=== PATIENT | female | born 1955 | race Caucasian/White ===

== ENCOUNTER → 2022-07-09 | Outpatient (CLI) | payer MEDICARE, OTHER, SELFPAY | END | disposition home or self-care (01) | LOC: LABSPEC 11:15 | PROVIDERS: PCP Internal Medicine; Referring Provider Nurse Practitioner Family; Visit Provider Nurse Practitioner Family | DX: R05.9 Cough, unspecified (principal) | CPT/HCPCS: 87635; U0003; U0005 ==

== ENCOUNTER → 2022-08-19 | Outpatient (CLI) | payer MEDICARE, OTHER, SELFPAY ==
[2022-08-19 12:29] LABS: Absolute Lymphocyte Count 1.92 X10^3/uL (0.83-4.51); Absolute Neutrophil Count 2.9 X10^3/uL (2.0-7.7); Basophil# 0.06 X10^3/uL; Basophil% 1.1 % (0-1); Eosinophil# 0.13 X10^3/uL; Eosinophils% 2.3 % (0-5); Hematocrit 37.8 % (37-47); Hemoglobin 13.2 g/dL (12.0-15.0); Lymphocyte # 1.92 X10^3/ul (0.83-4.51); Lymphocyte % 33.9 % (19-41); Mean Corp Hgb Conc 34.9 g/dL (32-36); Mean Corpuscular Hgb 31.9 pg (27.0-32.0); Mean Corpuscular Volume 91.3 fL (81-99); Mean Platelet Vol. 9.3 fl (6.2-12.0); Monocyte# 0.62 X10^3/uL; NRBC Flagged by Analyzer 0 % (0-5); Neutrophil # 2.93 X10^3/uL (2.7-7.7); Neutrophil % 51.7 % (47-70); Platelet Count 282 K/mm3 (150-450); RBC Distribution Width CV 13.1 % (11.6-14.6); RBC Distribution Width SD 43.9 fl (35.1-43.9); Red Blood Count 4.14 M/mm3 (4.2-5.4); White Blood Count 5.7 K/mm3 (4.4-11.0)
[2022-08-19 13:10] LABS: ALB/GLOB Ratio 1.1 RATIO (0.9-2.4); AST(SGOT) 23 U/L (15-37); Alanine Aminotransfer ALT/SGPT 29 U/L (13-56); Albumin, Serum 4.1 g/dL (3.2-5.0); Alkaline Phosphatase 66 U/L (45-117); Anion Gap 6 (5-15); BUN 15 mg/dL (7-18); BUN/Creat Ratio 17.7 RATIO (10-20); Calcium,Total 10.1 mg/dL (8.5-10.1); Chloride 100 mmol/L (98-107); Cholesterol 255 mg/dL (200); Creatinine, Serum 0.85 mg/dL (0.55-1.02); EST Glomerular Filtration Rate 71 mL/min (>60); Est Glom Filt Rate - Afr Amer 86 mL/min (>60); Free T3 2.3 pg/mL (2.18-3.98); Globulin 3.9 g/dL (2.2-4.2); Glucose 107 mg/dL (74-106); High Density Lipoprotein 50 mg/dL; Potassium 4.2 mmol/L (3.5-5.1); Sodium Level 136 mmol/L (136-145); T4 Free Direct 1.01 ng/dL (0.76-1.46); Thyroid Stim Hormone (TSH) 2.34 uIU/mL (0.358-3.74); Triglycerides 168 mg/dL; Very Low Density Lipoprotein 34 mg/dL (5-40)
== END | disposition home or self-care (01) ==
LOC: LAB 11:53
PROVIDERS: PCP Internal Medicine; Visit Provider Internal Medicine
DX: F32.0 Major depressive disorder, single episode, mild (principal); K21.9 Gastro-esophageal reflux disease without esophagitis; G47.33 Obstructive sleep apnea (adult) (pediatric); I10 Essential (primary) hypertension; E55.9 Vitamin D deficiency, unspecified; R53.83 Other fatigue
CPT/HCPCS: 36415; 80053; 80061; 82306; 84439; 84443; 84481; 85025

== ENCOUNTER → 2022-08-28 | Outpatient (CLI) | payer MEDICARE, OTHER, SELFPAY ==
--- NOTE | 2022-08-28 12:49 | STRESSREP_ITS ---
Stress Test Report Date: 08/28/2022 Procedure: Exercise tolerance test/imaging study Indications: Dyspnea on exertion Consent: Per the patient Procedure: The patient exercised on a Sam protocol for 7 minutes achieving a peak heart rate of 130 bpm (85% predicted maximal heart rate) with a peak blood pressure 170/82 mmHg and a peak MET capacity of 10 METs. The baseline ECG demonstrated normal sinus rhythm. The peak exercise ECG demonstrated no ischemic change. There were no cardiac dysrhythmias pretest, during exercise, or recovery. The functional capacity was considered low average. There was no complaint of chest discomfort during exercise or recovery. The examination was discontinued secondary to target heart rate being achieved. The patient was injected with 11.9 mCi of technetium 99m Cardiolite and subsequently rest SPECT Cardiolite nuclear imaging was obtained in the horizontal long, vertical long, and short axis views. Post-exercise, the patient was injected with 34.3 mCi of technetium 99m Cardiolite and subsequently stress SPECT Cardiolite nuclear imaging was obtained in the horizontal long, vertical long, and short axis views. A gated Cardiolite study at peak stress was obtained. Rest and stress SPECT Cardiolite nuclear imaging status post realignment, normalization, and attenuation correction, demonstrates mild to moderate sized reversible defect in the anterior wall of mild dense intensity. There is end systolic thickening and brightening. The gated Cardiolite study demonstrates myocardial thickening and inward wall motion. The reported LVEF is 76%. Impression: 1. Technically adequate (percent predicted maximal heart rate greater than 85%) exercise tolerance test 2. Peak exercise ECG no ischemic changes 3. There were no cardiac dysrhythmias pretest, during exercise, or recovery 4. Rest and stress SPECT Cardiolite nuclear imaging demonstrate a small to moderate sized reversible defect in the anterior wall suggestive of ischemia. 5. The gated Cardiolite study reports an LVEF of 76%. This note was generated with DigitalGlobeation software. It may contain incorrect words, spelling, and punctuation that were not noted in checking the note before signing.
== END | disposition home or self-care (01) ==
LOC: CVS 06:44
PROVIDERS: PCP Internal Medicine; Referring Provider Internal Medicine; Visit Provider Internal Medicine
DX: R06.09 Other forms of dyspnea (principal); I10 Essential (primary) hypertension; R53.83 Other fatigue
CPT/HCPCS: 78452; 93017; A9500; A4216

== ENCOUNTER → 2022-09-18 | Outpatient (CLI) | payer MEDICARE, OTHER, SELFPAY ==
--- NOTE | 2022-09-18 07:54 | ECHOCS_ITS ---
Reason For Study: Murmur Procedure This was a 2D Doppler, Color Flow transthoracic echocardiogram. The study was technically difficult. Contrast injection was performed. Exam performed in department. Left Ventricle Normal size and thickness. The left ventricular ejection fraction is 65 %. Normal diastololic function. Right Ventricle Normal right ventricle. Atria The left and right atria are normal. Can not exclude tiny PFO. Mitral Valve Mild (1+) mitral valve insufficiency. Tricuspid Valve Mild to moderate (1-2+) tricuspid valve insufficiency. Normal pulmonary artery pressure. Aortic Valve Aortic sclerosis, no stenosis. Trivial aortic valve insufficiency. Pulmonic Valve The pulmonic valve is not well visualized. Trivial eccentric pulmonic valve insufficiency. Great Vessels Normal sized aortic root. Pericardium/Pleural No pericardial effusion. Medication 20 gauge I.V. with prn adaptor inserted into right arm. Diluted definity 1.5ml given slow IV push to enhance endocardial definition. MMode/2D Measurements & Calculations LVIDd: 4.6 cm IVSd: 1.1 cm LVOT diam: 2.0 cm LVIDs: 2.9 cm LVPWd: 1.3 cm RVDd: 3.7 cm FS: 36.4 % LVOT area: 3.1 cm2 Ao root diam: 3.6 cm LAV(MOD-bp): 48.9 ml LA A4 area: 19.0 cm2 LA dimension: 3.8 cm LAV(MOD-bp) Indexed: 23.8 ml/m2 LAV(MOD-sp2): 44.9 ml LAV(MOD-sp4): 51.6 ml RA A4 area: 16.9 cm2 Time Measurements MV dec time: 0.24 sec Doppler Measurements & Calculations MV E max rohit: 82.7 cm/sec Lat Peak E' Rohit: 11.5 cm/sec Med Peak E' Rohit: 7.9 cm/sec MV A max rohit: 86.7 cm/sec E/E' lat: 7.2 E/E' med: 10.4 MV E/A: 0.95 MV V2 max: 108.1 cm/sec MV P1/2t max rohit: 109.2 cm/sec Ao V2 max: 173.7 cm/sec MV max P.7 mmHg MV P1/2t: 94.5 msec Ao max P.1 mmHg MV V2 mean: 56.7 cm/sec MV dec slope: 338.3 cm/sec2 Ao V2 mean: 117.3 cm/sec MV mean P.5 mmHg Ao mean P.4 mmHg MV V2 VTI: 38.0 cm MVA(P1/2t): 2.3 cm2 Ao V2 VTI: 42.5 cm MVA(VTI): 2.3 cm2 ADITYA(I,D): 2.1 cm2 ADITYA(V,D): 2.0 cm2 LV V1 max: 111.3 cm/sec MR max rohit: 491.0 cm/sec SV(LVOT): 87.1 ml LV V1 max P.0 mmHg MR max P.5 mmHg LV V1 mean P.9 mmHg MR mean rohit: 396.7 cm/sec LV V1 mean: 80.9 cm/sec MR mean P.4 mmHg LV V1 VTI: 27.7 cm MR VTI: 200.2 cm PA V2 max: 99.7 cm/sec TR max rohit: 238.6 cm/sec PA V2 mean: 69.5 cm/sec TR max P.9 mmHg ECHO/Echo Complete W/ Contrast Interpretation Summary The left ventricular ejection fraction is 65 %. Can not exclude tiny PFO Mild (1+) mitral valve insufficiency. Mild to moderate (1-2+) tricuspid valve insufficiency. Aortic sclerosis, no stenosis. Ordering Physician: Ana M Claudio Referring Physician: Mary Louis M.D. Performed By: Albin Macias RCS
--- NOTE | 2022-09-18 08:50 | RAD_ITS ---
STUDY: X-RAY CHEST REASON FOR EXAM: Female, 67 years old. Chest pain/pressure TECHNIQUE: PA and lateral views of the chest. COMPARISON: None. FINDINGS: Chronic interstitial changes, no superimposed acute pulmonary process. There is no demonstrated pleural abnormality. Normal size heart. Normal mediastinum and be. Normal visualized pulmonary arteries. Normal visualized aortic arch and descending thoracic aorta. Normal visualized thoracic spine. Normal visualized ribs, clavicles, and shoulders. There is no demonstrated abnormality of the visualized soft tissue structures of the upper abdomen. RAD/Chest PA and Lateral IMPRESSION: Chronic interstitial changes, no superimposed acute pulmonary process Electronically Signed: Bladimir Navarro MD at 9:21 EDT ,
== END | disposition home or self-care (01) ==
PROVIDERS: PCP Internal Medicine; Referring Provider Internal Medicine Cardiovascular Disease; Visit Provider Internal Medicine Cardiovascular Disease
DX: R06.09 Other forms of dyspnea (principal); R94.39 Abnormal result of other cardiovascular function study; G47.33 Obstructive sleep apnea (adult) (pediatric)
CPT/HCPCS: 71046; 93306; Q9957; A4216; C8929

== ENCOUNTER 2022-09-19 07:48 | Day surgery (SDC) | payer MEDICARE, OTHER, SELFPAY ==
[2022-09-18 08:56] VITALS: BMI 34.3
[2022-09-18 09:19] LABS: Hematocrit 36.2 % (37-47); Hemoglobin 12.4 g/dL (12.0-15.0); Mean Corp Hgb Conc 34.3 g/dL (32-36); Mean Corpuscular Hgb 31.9 pg (27.0-32.0); Mean Corpuscular Volume 93.1 fL (81-99); Mean Platelet Vol. 9.6 fl (6.2-12.0); Platelet Count 265 K/mm3 (150-450); RBC Distribution Width SD 43.8 fl (35.1-43.9); Red Blood Count 3.89 M/mm3 (4.2-5.4)
[2022-09-18 09:34] LABS: Partial Thromboplast Time 31.1 Seconds (24.1-36.2)
[2022-09-18 09:53] LABS: Anion Gap 5 (5-15); BUN 15 mg/dL (7-18); BUN/Creat Ratio 16.1 RATIO (10-20); Calcium,Total 9.7 mg/dL (8.5-10.1); Chloride 100 mmol/L (98-107); Creatinine, Serum 0.93 mg/dL (0.55-1.02); EST Glomerular Filtration Rate 64 mL/min (>60); Est Glom Filt Rate - Afr Amer 77 mL/min (>60); Glucose 93 mg/dL (74-106); Potassium 3.6 mmol/L (3.5-5.1); Sodium Level 136 mmol/L (136-145)
--- NOTE | 2022-09-19 11:25 | CL.D_ITS ---
Patient Name: CALEB QUIROZ Study Date: 09/19/2022 Performing: Ana M Claudio MD Ht: 66 inches 167.64 cm : 1955 Wt: 213.01 lbs 96.62 kg Age: 67 Gender: female BSA: 2.05 PROCEDURE(S) PERFORMED [id number]-([id number])[facility] CLINICAL PROFILE AND INDICATIONS Indications: Suspected CAD Heart Failure: None Stress/Imaging Stress Test w/SPECT MPI: Yes Result: Positive Intermediate RiskStress Test with SPECT MPI: Positive Intermediate Risk CONCLUSIONS 50% Prox LAD, 50% Mid LAd 65-70% calcified Mid LCX 50% ostial RPDA RECOMMENDATIONS Medical therapy. If continues to be symptomatic despite maximal medical therapy, then PCI to Mid LCX DESCRIPTION OF PROCEDURE The patient arrived to the procedure lab. The risks and benefits of the procedure as well as a full description of our services here and current unavailability of surgical backup were fully explained to the patient and/or their significant other prior to the catheterization. The Timeout was completed, verifying the correct patient and procedure. The patient's procedural site was prepped and draped in the usual fashion. Local anesthetic was given subcutaneously to right radial region with Lidocaine 2%. Using a modified Seldinger technique, arterial access was obtained via the right radial artery, a 6Fr sheath was inserted. Left Coronary Artery selective angiography was performed in multiple views using a 5 Fr. 4.0 [place] catheter. Right Coronary Artery selective angiography was then performed in multiple views using a 5 Fr. 4.0 [place] catheter.The arterial sheath was pulled and a TR Band was applied for hemostasis CORONARY ANGIOGRAPHY DOMINANCE: Right Dominant LEFT HEART ASSESSMENT LVEDP: 33 mmHg LEFT ANTERIOR DESCENDING ARTERY: LAD: Calcified 50% Proximal lesion in LAD Tubular 50% Mid lesion in LAD CIRCUMFLEX ARTERY: CIRCUMFLEX: Calcified 70% Mid lesion in Circumflex RIGHT CORONARY ARTERY: RCA: Tubular 30% Proximal lesion in RCA RT PDA: Tubular 50% Ostial lesion in Right PDA COMPLICATIONS No Complications PROCEDURE MEDICATIONS Versed 2 mg IV Fentanyl 50 mcg IV Oxygen: 2 L/min via nasal cannula Baby Aspirin (81mg) 1 Tabs PO @ 09/19/2022 08:27:19 Heparin given IA 09/19/2022 11:02:06 Verapamil 2.5mg, Ntg 200mcgs, 2000 units of Heparin given IA 09/19/2022 11:02:06 IV Bolus: .9 NaCl 250 ml total 09/19/2022 11:07:31 SUMMARY OF HEMODYNAMIC DATA Time AIR REST ECG 08:20:00 AO 140/80 (102) SA 11:04:50 LV 145/28, 35 11:08:25 11:23:20 Signed By Ana M Claudio MD On 09/19/2022 11:25:06 Ana M Claudio MD
== END 2022-09-19 13:30 | disposition home or self-care (01) ==
PROVIDERS: PCP Internal Medicine; Referring Provider Internal Medicine Cardiovascular Disease; Visit Provider Internal Medicine Cardiovascular Disease
DX: R06.09 Other forms of dyspnea (principal); R94.39 Abnormal result of other cardiovascular function study; R01.1 Cardiac murmur, unspecified; I10 Essential (primary) hypertension; E78.5 Hyperlipidemia, unspecified; G47.33 Obstructive sleep apnea (adult) (pediatric); Z79.82 Long term (current) use of aspirin; Z79.899 Other long term (current) drug therapy; Z86.16 Personal history of COVID-19; Z87.891 Personal history of nicotine dependence; Z82.49 Family history of ischemic heart disease and other diseases of the circulatory system; R00.1 Bradycardia, unspecified; R06.02 Shortness of breath
CPT/HCPCS: 36415; 80048; 85027; 85610; 85730; 93454; 99152; 99153; J7040; C1769; C1894; Q9967

== ENCOUNTER → 2022-11-21 | Outpatient (CLI) | payer MEDICARE, OTHER, SELFPAY ==
[2022-11-21 10:48] LABS: AST(SGOT) 32 U/L (15-37); Alanine Aminotransfer ALT/SGPT 49 U/L (13-56); CPK Total, Creatine Kinase 160 U/L (26-192); Cholesterol 152 mg/dL (200); High Density Lipoprotein 54 mg/dL; Triglycerides 130 mg/dL; Very Low Density Lipoprotein 26 mg/dL (5-40)
== END | disposition home or self-care (01) ==
LOC: LAB 09:49
PROVIDERS: PCP Internal Medicine; Referring Provider Internal Medicine Cardiovascular Disease; Visit Provider Internal Medicine Cardiovascular Disease
DX: E78.5 Hyperlipidemia, unspecified (principal); I10 Essential (primary) hypertension
CPT/HCPCS: 36415; 80061; 82550; 84450; 84460

== ENCOUNTER → 2022-12-19 | Outpatient (CLI) | payer MEDICARE, OTHER, SELFPAY ==
[2022-12-19 12:22] LABS: CPK Total, Creatine Kinase 131 U/L (26-192)
== END | disposition home or self-care (01) ==
LOC: LAB 11:07
PROVIDERS: PCP Internal Medicine; Visit Provider Internal Medicine Cardiovascular Disease
DX: E78.5 Hyperlipidemia, unspecified (principal); M79.10 Myalgia, unspecified site
CPT/HCPCS: 36415; 82550

== ENCOUNTER → 2023-01-03 | Outpatient (CLI) | payer MEDICARE, OTHER, SELFPAY ==
[2023-01-03 16:57] LABS: Hematocrit 35.9 % (37-47); Hemoglobin 11.9 g/dL (12.0-15.0); Mean Corp Hgb Conc 33.1 g/dL (32-36); Mean Corpuscular Hgb 31.9 pg (27.0-32.0); Mean Corpuscular Volume 96.2 fL (81-99); Mean Platelet Vol. 9.4 fl (6.2-12.0); Platelet Count 271 K/mm3 (150-450); RBC Distribution Width CV 12.9 % (11.6-14.6); RBC Distribution Width SD 44.9 fl (35.1-43.9); Red Blood Count 3.73 M/mm3 (4.2-5.4); White Blood Count 5.6 K/mm3 (4.4-11.0)
[2023-01-03 17:21] LABS: Anion Gap 5 (5-15); BUN 16 mg/dL (7-18); BUN/Creat Ratio 14.8 RATIO (10-20); Calcium,Total 9.9 mg/dL (8.5-10.1); Chloride 100 mmol/L (98-107); Creatinine, Serum 1.08 mg/dL (0.55-1.02); EST Glomerular Filtration Rate 54 mL/min (>60); Est Glom Filt Rate - Afr Amer 65 mL/min (>60); Glucose 100 mg/dL (74-106); Potassium 3.8 mmol/L (3.5-5.1); Sodium Level 136 mmol/L (136-145)
[2023-01-03 17:27] LABS: BNP,B-Type NATRIURETIC PEPTIDE 28.8 pg/mL (0-100)
== END | disposition home or self-care (01) ==
LOC: LAB 15:28
PROVIDERS: Nurse Practitioner Gerontology; PCP Internal Medicine; Visit Provider Internal Medicine Cardiovascular Disease
DX: R06.02 Shortness of breath (principal); R60.9 Edema, unspecified; R42 Dizziness and giddiness; R53.83 Other fatigue; I25.10 Atherosclerotic heart disease of native coronary artery without angina pectoris; R20.0 Anesthesia of skin; D64.9 Anemia, unspecified; R63.5 Abnormal weight gain; R01.1 Cardiac murmur, unspecified; R05.9 Cough, unspecified
CPT/HCPCS: 36415; 80048; 83880; 85027

== ENCOUNTER 2023-03-29 15:51 | Emergency (ER) | payer MEDICARE, OTHER, SELFPAY ==
[2023-03-29 15:51] VITALS: BP 132/90; PULSE 65; RESP 16; TEMP 36.2; O2SAT 100; BMI 37.1
--- NOTE | 2023-03-29 20:00 | EDS_ITS ---
HPI History of Present Illness Chief Complaint: Wound Informant: patient and family Narrative Narrative: Patient here duration concerns for worsening infection. Patient states last week wearing new sandals that were comfortable, she states she developed a blood blister to her toe. She seen urgent care this past Friday started on Keflex. Was told of streaking occurs to go to the ED. She is not diabetic. She has no fevers. States new spots on her bilateral foot. There is been swelling to her foot that is improved however the blister has increased. Prior similar symptoms: No PFSH PFSH Medical History Anemia Asthma Atherosclerotic heart disease of [place] coronary artery without angina pectoris bladder sling Chronic bronchitis Chronic right shoulder pain Contact with and (suspected) exposure to other viral communicable diseases Coronary artery disease COVID-19 Depressive disorder, not elsewhere classified Dyslipidemia Essential hypertension GERD (gastroesophageal reflux disease) Low back problem Murmur, cardiac Muscle spasm Skin cancer Sleep apnea SOB (shortness of breath) tonsillectomy UTI (urinary tract infection) Weight gain with edema Home Medications multivitamin (Daily Multi-Vitamin tablet) 1 tab PO DAILY 06/22/20 [History Last Taken Unknown] hydrochlorothiazide 25 mg tablet 25 mg PO DAILY #90 tabs 04/08/22 [Rx Last Taken Unknown] magnesium 250 mg tablet 500 mg PO DAILY 08/19/22 [History Last Taken Unknown] aspirin 81 mg tablet,delayed release (Micaela Low Dose Aspirin) 81 mg PO DAILY 09/10/22 [History Last Taken 09/19/22] cholecalciferol (vitamin D3) 50 mcg (2,000 unit) capsule 50 mcg PO DAILY 09/10/22 [History Last Taken Unknown] vitamin E (dl, acetate) 90 mg (200 unit) capsule 90 mg PO DAILY 09/10/22 [History Last Taken Unknown] metoprolol tartrate 50 mg tablet 25 mg PO BID #90 tabs 11/20/22 [Rx Last Taken Unknown] isosorbide mononitrate 30 mg tablet,extended release 24 hr 30 mg PO DAILY #90 tabs 12/17/22 [Rx Last Taken Unknown] ezetimibe 10 mg tablet (Zetia) 10 mg PO DAILY #30 tabs 02/03/23 [Rx Last Taken Unknown] fluoxetine 40 mg capsule 40 mg PO QAM 02/03/23 [History Last Taken Unknown] nitroglycerin 0.4 mg sublingual tablet 0.4 mg sublingual Q5M PRN chest pain #25 tabs 02/03/23 [Rx Last Taken Unknown] amlodipine 10 mg tablet 10 mg PO DAILY #30 tabs 03/12/23 [Rx Last Taken Unknown] meloxicam 7.5 mg tablet 7.5 mg PO DAILY 03/12/23 [History Last Taken Unknown] Allergy/AdvReac Type Severity Reaction Status Date / Time prednisone Allergy Severe kidney Verified 03/29/23 15:51 failure,weakness amlodipine AdvReac Intermediate Swelling Verified 03/29/23 15:51 in feet, numbness in fingers atorvastatin AdvReac Intermediate Other Verified 03/29/23 15:51 Family History Mother Breast cancer Heart disease Hypertension Diabetes Myocardial infarction Aunt Breast cancer Father Anxiety Alcoholism Brother Anxiety Alcoholism Cystic fibrosis Grandfather Anxiety Alcoholism Sister Cystic fibrosis Surgical History H/O knee surgery History of left heart catheterization (~09/19/22) Previous back surgery Tubal ligation status Social History household members: spouse housing: house current occupational status: retired Smoking Status: Former smoker alcohol intake: current alcohol intake frequency: a few times a week Alcohol type: wine substance use type: does not use caffeine: Yes Type: coffee Number of servings: 2 ROS ROS ED Constitutional Constitutional ED: Denies chills, fever(s) or sweats Eyes Eyes: Denies change in vision ENT ENT ED: Denies dysphagia or sore throat Cardiovascular Cardiovascular: Denies chest pain, leg edema, palpitations or racing heartbeat Respiratory/Chest Respiratory/Chest: Denies cough, dyspnea or dyspnea on exertion Gastrointestinal Gastrointestinal: Denies abdominal pain, diarrhea, nausea or vomiting Genitourinary Genitourinary ED: Denies dysuria, hematuria or urinary frequency Musculoskeletal Musculoskeletal: Denies back pain, extremity pain or neck pain Integumentary Reports wounds; Denies rash Neurologic Neurologic: Denies headache(s), paresthesias or weakness EXAM Physical Exam Const Vital Signs: 03/29/23 15:51 Temperature 97.2 F L Temperature Source Temporal Pulse Rate 65 Respiratory Rate 16 Blood Pressure 132/90 H Blood Pressure Mean 104 Pulse Ox 100 Oxygen Delivery Method Room Air Positive well nourished and well developed General Appearance ED: well developed and NAD HEENT Reports moist mucous membranes normocephalic and atraumatic Eyes PERRL, EOMs intact bilaterally and conjunctivae normal General Eye ED: Yes normal appearance of both eyes Neck no lymphadenopathy and supple General: Negative for tenderness Chest Wall Chest: Negative for tenderness Resp normal respiratory effort and normal air movement Effort and Inspection: symmetric chest movement; Negative for respiratory distress Cardio regular rate, regular rhythm and no murmurs Peripheral Pulses: pulses 2+ throughout GI normal to inspection, nondistended, normoactive bowel sounds and non-tender Palpation: Negative for guarding or rebound tenderness present Back/Spine no CVA tenderness and no thoracic nor lumbar tenderness Extremity Extremity Narrative: Left foot: There was clear fluid-filled blister dorsal aspect of the left great toe no hemorrhage noted. Abrasion noted at the first webspace area, no drainage. No streaking. Right foot: Small abrasion noted at the first webspace at the distal first metatarsal, upon gentle rub, there is small flaking of skin. No drainage. General Extremety ED: Negative for edema or tenderness General Extremity: Negative for edema Neuro oriented x3 and no sensory deficits noted Sensorium / Orientation: awake and alert Skin no rashes or lesions noted and no wounds MDM MDM MDM Narrative Medical decision making narrative: Interventions / MDM: Differential diagnosis: Blister, friction abrasion Diagnosis considered but do not suspect: Clinical cellulitic concerns no abscess My EKG interpretation: N/A Imaging independently reviewed and interpreted by myself: N/A External documents reviewed: N/A Test considered but not ordered:N/A ED course: Patient's history and findings more concerned for friction irritation causing the blister and abrasions from her sandals from a week ago. This follows the pattern of sandals. I did drain the blister with a 22-gauge needle, pressure dressing was placed. Since patient was started on Keflex discussed finishing this as prescribed. She is given wound care for follow-up with return precautions. All questions were answered. Re-evaluation: stable Disposition discussed with patient/family/significant other: Patient and daughter Case discussed with consulting clinician: N/A Discharge Plan Triage Chief Complaint: Wound ED Provider: Noman Oliver Dx/Rx/DC Orders Clinical Impression: Blister, Abrasion Prescriptions: No Action multivitamin [Daily Multi-Vitamin] Tablet 1 tab PO DAILY magnesium 250 mg tablet 500 mg PO DAILY Rx Instructions: 500mg orally daily; aspirin [Micaela Low Dose Aspirin] 81 mg tablet,delayed release (DR/EC) 81 mg PO DAILY cholecalciferol (vitamin D3) 50 mcg (2,000 unit) capsule 50 mcg PO DAILY vitamin E (dl, acetate) 90 mg (200 unit) capsule 90 mg PO DAILY amlodipine 10 mg tablet 10 mg PO DAILY Qty: 30 12RF fluoxetine 40 mg capsule 40 mg PO QAM Label Comments: TAKE ONE CAPSULE BY MOUTH EVERY DAY ezetimibe [Zetia] 10 mg tablet 10 mg PO DAILY Qty: 30 11RF nitroglycerin 0.4 mg tablet, sublingual 0.4 mg sublingual Q5M PRN (Reason: chest pain) Qty: 25 3RF Rx Instructions: do not exceed 3 doses per episode meloxicam 7.5 mg tablet 7.5 mg PO DAILY hydrochlorothiazide 25 mg tablet 25 mg PO DAILY Qty: 90 3RF metoprolol tartrate 50 mg tablet 25 mg PO BID Qty: 90 3RF isosorbide mononitrate 30 mg tablet extended release 24 hr 30 mg PO DAILY Qty: 90 3RF Primary Care Provider: Mary Louis Referrals: Mary Louis MD [Primary Care Provider] - Wound,Center [Non-Staff] - 3-5 Days Activity Restrictions/Additional Instructions: You have a pressure blister great toe clear liquid. Normal wound care warm soap and water avoid continuing pressure with your sandals may wear slides. Finish your antibiotics as prescribed by urgent care. Follow-up with wound care center. Return if worsening symptoms. Disposition Disposition: Home, Self Care Discharge Date/Time: 03/29/23 16:47
== END 2023-03-29 16:47 | disposition home or self-care (01) ==
PROVIDERS: Emergency Provider Emergency Medicine; PCP Internal Medicine; Visit Provider Emergency Medicine
DX: S90.422A Blister (nonthermal), left great toe, initial encounter (principal); S90.811A Abrasion, right foot, initial encounter; S90.812A Abrasion, left foot, initial encounter; X58.XXXA Exposure to other specified factors, initial encounter; I25.10 Atherosclerotic heart disease of native coronary artery without angina pectoris; I10 Essential (primary) hypertension; E78.5 Hyperlipidemia, unspecified; Z79.82 Long term (current) use of aspirin; Z79.899 Other long term (current) drug therapy; Z86.16 Personal history of COVID-19; Z87.891 Personal history of nicotine dependence
CPT/HCPCS: 99282

== ENCOUNTER 2023-05-09 08:30 | Day surgery (SDC) | payer MEDICARE, OTHER, SELFPAY ==
[2023-05-09] VITALS (8 sets, daily range): BP systolic 95–141; BP diastolic 62–72; PULSE 56–61; RESP 16; TEMP 36.1–36.4; O2SAT 97–100; BMI 36.2
--- NOTE | 2023-05-09 08:48 | HP.PCM_ITS ---
History and Physical Date of Admission: 05/09/23 Visit Reasons:?RECTAL BLEEDING Chief Complaint: rectal bleeding Is patient in pain?: No Allergies prednisone Allergy (Severe, Verified 03/25/23 14:23) kidney failure,weaknessamlodipine Adverse Reaction (Intermediate, Verified 03/25/23 14:23) Swelling in feet, numbness in fingersatorvastatin Adverse Reaction (Intermediate, Verified 03/25/23 14:23) Other Medications multivitamin (Daily Multi-Vitamin tablet) 1 tab PO DAILY 06/22/20 [History Confirmed 03/25/23] hydrochlorothiazide 25 mg tablet 25 mg PO DAILY #90 tabs 04/08/22 [Rx Confirmed 03/25/23] magnesium 250 mg tablet 500 mg PO DAILY 08/19/22 [History Confirmed 03/25/23] aspirin 81 mg tablet,delayed release (Micaela Low Dose Aspirin) 81 mg PO DAILY 09/10/22 [History Confirmed 03/25/23] cholecalciferol (vitamin D3) 50 mcg (2,000 unit) capsule 50 mcg PO DAILY 2 [History Confirmed 03/25/23] vitamin E (dl, acetate) 90 mg (200 unit) capsule 90 mg PO DAILY 09/10/22 [History Confirmed 03/25/23] metoprolol tartrate 50 mg tablet 25 mg PO BID #90 tabs 11/20/22 [Rx Confirmed 03/25/23] isosorbide mononitrate 30 mg tablet,extended release 24 hr 30 mg PO DAILY #90 tabs 12/17/22 [Rx Confirmed 03/25/23] ezetimibe 10 mg tablet (Zetia) 10 mg PO DAILY #30 tabs 02/03/23 [Rx Confirmed 03/25/23] fluoxetine 40 mg capsule 40 mg PO QAM 02/03/23 [History Confirmed 03/25/23] nitroglycerin 0.4 mg sublingual tablet 0.4 mg sublingual Q5M PRN chest pain #25 tabs 02/03/23 [Rx Confirmed 03/25/23] amlodipine 10 mg tablet 10 mg PO DAILY #30 tabs 03/12/23 [Rx Confirmed 03/25/23] meloxicam 7.5 mg tablet 7.5 mg PO DAILY 03/12/23 [History Confirmed 03/25/23] PFSH Medical History? Anemia Asthma Atherosclerotic heart disease of [place] coronary artery without angina pectoris bladder sling Chronic bronchitis Chronic right shoulder pain Contact with and (suspected) exposure to other viral communicable diseases Coronary artery disease COVID-19 Depressive disorder, not elsewhere classified Dyslipidemia Essential hypertension GERD (gastroesophageal reflux disease) Low back problem Murmur, cardiac Muscle spasm Skin cancer Sleep apnea SOB (shortness of breath) tonsillectomy UTI (urinary tract infection) Weight gain with edema Surgical History? H/O knee surgery History of left heart catheterization (~09/19/22) Previous back surgery Tubal ligation status Family History? Mother Breast cancer Heart disease Hypertension Diabetes Myocardial infarctionAunt Breast cancerFather Anxiety AlcoholismBrother Anxiety Alcoholism Cystic fibrosisGrandfather Anxiety AlcoholismSister Cystic fibrosis Social History? household members:? spouse housing:? house current occupational status:? retired Smoking Status:? Former smoker alcohol intake:? current alcohol intake frequency: a few times a week Alcohol type: wine substance use type:? does not use caffeine:? Yes Type: coffee Number of servings: 2 HPI HPI HPI: 68-year-old female is referred by Dr. Mary Louis regarding rectal bleeding and suspected hemorrhoids.? Written compromise surgical consult recommendations will be returned to him.? By history the patient's had a rectal fistula repaired.? Colonoscopy was greater than 10 years ago.? 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 She lived with that for over a decade and then finally had it repaired at the [facility].? She has no similar complaints at this time.? She has been having some intermittent rectal bleeding noted on the toilet tissue.? She denies any abdominal pain.? She has had weight gain secondary to stress.? She has had a heart catheterization showing 60 to 70% stenosis apparently by Dr. Claudio and has been placed on medication and low-dose aspirin.? The patient does get some exercise through Silver sneakers. She is able to climb a flight of stairs occasionally gets short of breath.? She denies tobacco use. She has no abdominal pain. ROS General General: Yes weight change and fatigue; No appetite, colon cancer, breast cancer or weakness HEENT HEENT: No difficulty swallowing, eye injury, eye surgery, swollen glands or hoarseness Endo Endocrine: No thyroid disease, diabetes mellitus, thyroid cancer, Hair loss, heat intolerance or cold intolerance Skin Skin: No rash or changing moles Musc Musculoskeletal: Yes back problems; No arthritis, rheumatoid arthritis, gout or joint pain Cardio Cardiovascular: Yes murmur, heart disease and high blood pressure; No pacemaker, atrial fibrillation, heart attack, heart stent, palpitations, shortness of breat with exertion or chest pain Psych Psychiatric: Yes depression and anxiety; No hearing voices Resp Respiratory: Yes shortness of breath, Yes sleep apnea, No cough, No COPD, Yes asthma, No emphysema and No wheezing Gastro Gastrointestinal: No abdominal pain, No nausea or vomiting, No diarrhea, No constipation, No blood in stool, No acid reflux, No hemorrhoids, No ulcers, No gallbladder problem and No black,tarry stools Bob Hematologic: No blood thinners, No blood disorders, No bleeding, No anemia and No blood clots Neuro Neurologic: No system reviewed and no additional complaints, except as doc umented, No as per HPI, No abnormal gait, No abnormal hearing, No abnormal movements, No abnormal speech, No behavioral changes, No burning sensations, No confusion, No convulsions, No disequilibrium, No dizziness, No localized weakness, No frequent falls, No headache(s), No lack of coordination, No loss of vision, No memory loss, No numbness, No other visual disturbances, No radicular pain, No restless legs, No sensory deficit, No syncope, No tingling, No tremor(s), No weakness and No other Exam Const General: cooperative, comfortable and no acute distress [facility] Head: normal to inspection Eyes General: appearance normal, both eyes and all related structures Neck Neck: normal visual inspection Resp Effort & Inspection: normal respiratory effort Auscultation: clear to auscultation bilaterally Cardio Rate: regular rate Rhythm: regular rhythm GI Palpation: soft and no hepatosplenomegaly Auscultation: normal bowel sounds Musc Cervical Spine: normal cervical lordosis Skin Other: Swelling noted bilateral feet.? She has a edematous blister of the right great toe.? Calves are nontender Neuro General: patient alert and patient awake Extrem General: no calf tenderness Psych Appearance: grossly normal Assessment and Plan Assessment and Plan (1) Rectal bleeding: ?Status:?Acute ?Plan: I recommended the patient a colonoscopy with possible biopsy or polypectomy as indicated.? She is aware of the technique, benefit, risk, alternatives.? Very careful inspection of the anal rectal area will be pursued.? It is of note that the patient has had a previous rectovaginal fistula repaired.? This will need to play into what potential future surgical treatment options are offered if anorectal disease or hemorrhoid disease is identified. She has had an opportunity to ask and have questions answered.? We will schedule procedure at her discretion.? Because of her cardiac cath disease we will have her continue her low-dose aspirin therapy in addition to her other medications.? On a side note I have advised her to remove her current sandal wearing elevate her legs and help reduce the edema in her feet. Copy: Dr. Mary Amador M.D., F.A.C.S I have examined the patient and the H&P has been reviewed. There are no clinical changes since date of exam. Adalberto Amador M.D., F.A.C.S.
[2023-05-09] MEDS: Lactated Ringers 1,000 ML 15 ML IV (08:59)
--- NOTE | 2023-05-09 09:30 | COLBX_PTH ---
PATIENT: CALEB QUIROZ LOC: EN U#:[id number] AGE/SX: 68/F ROOM: RE05/09/[address]: Dr. Adalberto Amador MD : 1955 BED: DIS: 05/09/2023 SPEC #: [id number] RECD: 05/09/23 13:15 STATUS: KALI WELLER #: [id number] ITZ: 05/09/23 09:[address]: Adalberto Amador DEPT: SURGICAL PATHOLOGY RECD BY: Zeinab Tucker ENTERED: 05/09/23 13:35 SP TYPE: COLON BX OTHR DR: Dr. Mary Louis MD Tissues: Sigmoid colon biopsy Procedures: Surgery Specimen Level IV HEADER OPERATION: Colonoscopy (MAC) PRE-OP DIAGNOSIS: Rectal bleeding TISSUE SUBMITTED: Distal sigmoid polyp MICROSCOPIC DIAGNOSIS Distal sigmoid colon polyp, biopsy: Polypoid fragments of benign colonic mucosa. See comment. AM:boom 05/12/2023 COMMENT Neither hyperplastic nor adenomatous change is seen. Clinical correlation is suggested. MICROSCOPIC DESCRIPTION Slides are reviewed. GROSS DESCRIPTION Received in fixative is one container labeled with the patient's name and designated distal sigmoid colon polyp. The specimen consists of two irregular fragments of light hathaway soft tissue that in aggregate measure 0.5 x 0.5 x 0.1 cm. The specimen is totally submitted in one cassette. / AM:boom 05/09/2023 TC:5 CPT: 69441
--- NOTE | 2023-05-09 10:31 | OP.COLON_ITS ---
Patient Name: Anita Mercado Procedure Date: 05/09/2023 9:49 AM Date of : 1955 Age: 68 Procedure: Colonoscopy Indications: Rectal bleeding Providers: Adalberto Amador MD Referring MD: Mary Louis Medicines: See the Anesthesia note for documentation of the administered medications Patient Profile: Last Colonoscopy: none. The patient's first colonoscopy is today. Complications: No immediate complications. Procedure: Pre-Anesthesia Assessment: - Prior to the procedure, a History and Physical was performed, and patient medications and allergies were reviewed. The patient's tolerance of previous anesthesia was also reviewed. The risks and benefits of the procedure and the sedation options and risks were discussed with the patient. All questions were answered, and informed consent was obtained. Prior Anticoagulants: The patient has taken no previous anticoagulant or antiplatelet agents. ASA Grade Assessment: II - A patient with mild systemic disease. After reviewing the risks and benefits, the patient was deemed in satisfactory condition to undergo the procedure. After I obtained informed consent, the scope was passed under direct vision. Throughout the procedure, the patient's blood pressure, pulse, and oxygen saturations were monitored continuously. The pediatric colonoscope was introduced through the anus and advanced to the cecum, identified by appendiceal orifice and ileocecal valve. The colonoscopy was technically difficult and complex due to the patient's body habitus. The patient tolerated the procedure well. The quality of the bowel preparation was good. The ileocecal valve and the appendiceal orifice were photographed. Scope In: 9:59:26 AM Scope Withdrawal Time 0 hours 13 minutes 14 seconds Scope Out: 10:24:44 AM Total Procedure Duration Time 0 hours 25 minutes 18 seconds Findings: The digital rectal exam findings include non-thrombosed external hemorrhoids, non-thrombosed internal hemorrhoids and internal hemorrhoids that prolapse with straining, but spontaneously regress to the resting position (Grade II). Pertinent negatives include no anal lesion or abnormality was detected. A 3 mm polyp was found in the distal sigmoid colon. The polyp was sessile. The polyp was removed with a cold biopsy forceps. Resection and retrieval were complete. Multiple diverticula were found in the sigmoid colon and descending colon. The colon (entire examined portion) was significantly tortuous. Impression: - Non-thrombosed external hemorrhoids, non-thrombosed internal hemorrhoids and internal hemorrhoids that prolapse with straining, but spontaneously regress to the resting position (Grade II) found on digital rectal exam. - One 3 mm polyp in the distal sigmoid colon, removed with a cold biopsy forceps. Resected and retrieved. - Diverticulosis in the sigmoid colon and in the descending colon. No fissure identified. Internal and external hemorrhoids identified. No evidence of active bleeding or inflammation. Recommendation: - Discharge patient to home. - Resume previous diet. - Continue present medications. - Repeat colonoscopy in 5 years for surveillance. - Telephone my office for pathology results in 1 week. Procedure Code(s): --- Professional --- 69376, Colonoscopy, flexible; with biopsy, single or multiple Diagnosis Code(s): --- Professional --- K64.1, Second degree hemorrhoids K64.4, Residual hemorrhoidal skin tags D12.5, Benign neoplasm of sigmoid colon K62.5, Hemorrhage of anus and rectum K57.30, Diverticulosis of large intestine without perforation or abscess without bleeding CPT copyright 2017 [employer]. All rights reserved. The codes documented in this report are preliminary and upon integrated pest management technician review may be revised to meet current compliance requirements. Adalberto Amador MD 05/09/2023 10:30:47 AM This report has been signed electronically. Number of Addenda: 0 Note Initiated On: 05/09/2023 9:49 AM
--- NOTE | 2023-05-09 10:32 | OP.CCLET_ITS ---
05/09/2023 Mary Louis [facility] [address] [place] [address] Re : Colonoscopy procedure for Anita Mercado Dear Dr. Louis This procedure was performed on Tuesday, May 09, 2023. My impressions and recommendations are as follows: Impressions : - Non-thrombosed external hemorrhoids, non-thrombosed internal hemorrhoids and internal hemorrhoids that prolapse with straining, but spontaneously regress to the resting position (Grade II) found on digital rectal exam. - One 3 mm polyp in the distal sigmoid colon, removed with a cold biopsy forceps. Resected and retrieved. - Diverticulosis in the sigmoid colon and in the descending colon. No fissure identified. Internal and external hemorrhoids identified. No evidence of active bleeding or inflammation. Recommendations : - Discharge patient to home. - Resume previous diet. - Continue present medications. - Repeat colonoscopy in 5 years for surveillance. - Telephone my office for pathology results in 1 week. My findings are described in the full procedure note, which is enclosed. If I can be of further assistance, please feel free to contact me at Doctor phone number(s): Work: . Sincerely, Adalberto Amador MD 05/09/2023 10:30:47 AM This report has been signed electronically.
== END 2023-05-09 11:27 | disposition home or self-care (01) ==
LOC: EN 08:31 → AC 08:32
PROVIDERS: PCP Internal Medicine; Referring Provider Internal Medicine; Visit Provider Surgery
PROC: 0DJD8ZZ Inspection of Lower Intestinal Tract, Via Natural or Artificial Opening Endoscopic (ICD-10-PCS; CPT 45378; principal; 2023-05-09 09:25)
DX: K64.1 Second degree hemorrhoids (principal); K64.4 Residual hemorrhoidal skin tags; D12.5 Benign neoplasm of sigmoid colon; K57.30 Diverticulosis of large intestine without perforation or abscess without bleeding; I25.10 Atherosclerotic heart disease of native coronary artery without angina pectoris; I10 Essential (primary) hypertension; E78.00 Pure hypercholesterolemia, unspecified; Z79.82 Long term (current) use of aspirin; Z79.899 Other long term (current) drug therapy; Z86.16 Personal history of COVID-19; Z87.891 Personal history of nicotine dependence
CPT/HCPCS: 45380; 88305; J7120; J2405

== ENCOUNTER → 2023-05-26 | Outpatient (CLI) | payer MEDICARE, OTHER, SELFPAY ==
[2023-05-26 13:38] LABS: Hemoglobin 12.1 g/dL (12.0-15.0); Mean Corp Hgb Conc 33.6 g/dL (32-36); Mean Corpuscular Hgb 31.7 pg (27.0-32.0); Mean Corpuscular Volume 94.2 fL (81-99); Mean Platelet Vol. 9.6 fl (6.2-12.0); Platelet Count 241 K/mm3 (150-450); RBC Distribution Width CV 12.8 % (11.6-14.6); RBC Distribution Width SD 43.9 fl (35.1-43.9); Red Blood Count 3.82 M/mm3 (4.2-5.4); White Blood Count 6.1 K/mm3 (4.4-11.0)
[2023-05-26 14:18] LABS: BNP,B-Type NATRIURETIC PEPTIDE 17.5 pg/mL (0-100)
[2023-05-26 14:25] LABS: AST(SGOT) 22 U/L (15-37); Alanine Aminotransfer ALT/SGPT 27 U/L (13-56); Anion Gap 5 (5-15); BUN 14 mg/dL (7-18); BUN/Creat Ratio 12.8 RATIO (10-20); CPK Total, Creatine Kinase 128 U/L (26-192); Calcium,Total 9.7 mg/dL (8.5-10.1); Chloride 100 mmol/L (98-107); Cholesterol 186 mg/dL (200); Creatinine, Serum 1.09 mg/dL (0.55-1.02); EST Glomerular Filtration Rate 53 mL/min (>60); Est Glom Filt Rate - Afr Amer 64 mL/min (>60); Glucose 97 mg/dL (74-106); High Density Lipoprotein 47 mg/dL; Potassium 3.8 mmol/L (3.5-5.1); Sodium Level 136 mmol/L (136-145); Triglycerides 137 mg/dL; Very Low Density Lipoprotein 27 mg/dL (5-40)
== END | disposition home or self-care (01) ==
LOC: LAB 12:56
PROVIDERS: PCP Internal Medicine; Referring Provider Internal Medicine Cardiovascular Disease; Visit Provider Internal Medicine Cardiovascular Disease
DX: I25.10 Atherosclerotic heart disease of native coronary artery without angina pectoris (principal); E78.5 Hyperlipidemia, unspecified; M62.838 Other muscle spasm; R06.02 Shortness of breath; Z86.2 Personal history of diseases of the blood and blood-forming organs and certain disorders involving the immune mechanism
CPT/HCPCS: 36415; 80048; 80061; 82550; 83880; 84450; 84460; 85027

== ENCOUNTER → 2023-08-29 | Outpatient (CLI) | payer MEDICARE, OTHER, SELFPAY ==
[2023-08-29 09:58] LABS: AST(SGOT) 28 U/L (15-37); Alanine Aminotransfer ALT/SGPT 53 U/L (13-56); Albumin, Serum 3.9 g/dL (3.2-5.0); Alkaline Phosphatase 60 U/L (45-117); Bilirubin, Direct 0.14 mg/dL (0.00-0.30); Cholesterol 222 mg/dL (200); Globulin 3.5 g/dL (2.2-4.2); High Density Lipoprotein 44 mg/dL; Protein, Total 7.4 g/dL (6.4-8.2); Thyroid Stim Hormone (TSH) 3.68 uIU/mL (0.358-3.74); Triglycerides 162 mg/dL; Very Low Density Lipoprotein 32 mg/dL (5-40)
== END | disposition home or self-care (01) ==
PROVIDERS: PCP Internal Medicine; Referring Provider Internal Medicine Cardiovascular Disease; Visit Provider Internal Medicine Cardiovascular Disease
DX: G47.30 Sleep apnea, unspecified (principal); I10 Essential (primary) hypertension; I25.10 Atherosclerotic heart disease of native coronary artery without angina pectoris; R06.02 Shortness of breath
CPT/HCPCS: 36415; 80061; 80076; 84443

== ENCOUNTER → 2023-09-08 | Outpatient (CLI) | payer MEDICARE, OTHER, SELFPAY ==
--- NOTE | 2023-09-08 13:46 | ECHOD_ITS ---
Reason For Study: SLEEP APNEA Procedure This was a 2D Doppler, Color Flow transthoracic echocardiogram. Exam performed in department. Left Ventricle Normal size and thickness. The left ventricular ejection fraction is 65 %. Normal diastology for age. Right Ventricle Normal right ventricle. Atria The left and right atria are normal. Mitral Valve Mild mitral annular calcification. Trivial mitral valve insufficiency. Tricuspid Valve Trivial tricuspid valve insufficiency. Normal pulmonary artery pressure. Aortic Valve Mild diffuse aortic valve calcification. Mild aortic stenosis. Mild (1+) aortic valve insufficiency. Pulmonic Valve The pulmonic valve is not well visualized. Great Vessels Mildly dilated aortic root. Pericardium/Pleural No pericardial effusion. MMode/2D Measurements & Calculations LVIDd: 4.2 cm IVSd: 0.90 cm Ao root diam: 3.6 cm LVIDs: 3.1 cm LVPWd: 0.92 cm RVDd: 3.1 cm FS: 27.6 % LAV(MOD-bp): 61.5 ml LVAd ap4: 24.2 cm2 LVAd ap2: 24.6 cm2 LAV(MOD-bp) Indexed: 29.5 ml/m2 LVLd ap4: 7.2 cm LVLd ap2: 7.3 cm LAV(MOD-sp2): 56.3 ml EDV(MOD-sp4): 68.6 ml EDV(MOD-sp2): 66.5 ml LAV(MOD-sp4): 56.8 ml EDV(sp4-el): 69.2 ml EDV(sp2-el): 69.8 ml LVAs ap4: 13.9 cm2 LVAs ap2: 13.5 cm2 LVLs ap4: 6.4 cm LVLs ap2: 6.5 cm ESV(MOD-sp4): 27.6 ml ESV(MOD-sp2): 24.1 ml ESV(sp4-el): 25.6 ml ESV(sp2-el): 23.8 ml EF(MOD-sp4): 59.8 % EF(MOD-sp2): 63.8 % EF(sp4-el): 63.0 % SV(MOD-sp4): 41.0 ml SV(MOD-sp2): 42.4 ml SV(sp4-el): 43.6 ml LA dimension(2D): 3.5 cm LA A4 area: 18.9 cm2 RA A4 area: 15.5 cm2 TAPSE: 2.4 cm Time Measurements MV dec time: 0.26 sec Doppler Measurements & Calculations MV E max rohit: 76.2 cm/sec Lat Peak E' Rohit: 13.2 cm/sec Med Peak E' Rohit: 8.7 cm/sec MV A max rohit: 67.3 cm/sec E/E' lat: 5.8 E/E' med: 8.8 MV E/A: 1.1 MV V2 max: 103.4 cm/sec MV dec slope: 302.8 cm/sec2 Ao V2 max: 190.8 cm/sec MV max P.3 mmHg Ao max P.6 mmHg MV V2 mean: 58.7 cm/sec Ao V2 mean: 130.9 cm/sec MV mean P.6 mmHg Ao mean P.9 mmHg MV V2 VTI: 29.9 cm Ao V2 VTI: 43.8 cm AV (velocity ratio): 0.56 AI max rohit: 395.6 cm/sec LV V1 max: 110.9 cm/sec PA V2 max: 91.5 cm/sec AI max P.6 mmHg LV V1 max P.9 mmHg PA V2 mean: 66.9 cm/sec AI dec slope: 156.0 cm/sec2 LV V1 mean P.5 mmHg AI P1/2t: 743.0 msec LV V1 mean: 71.8 cm/sec LV V1 VTI: 24.4 cm TR max rohit: 273.1 cm/sec TR max P.8 mmHg ECHO/Echo Complete Interpretation Summary The left ventricular ejection fraction is 65 %. Mild mitral annular calcification. Mild aortic stenosis. Mild (1+) aortic valve insufficiency. Mildly dilated aortic root. Ordering Physician: Ana M Claudio Referring Physician: Mary Louis Performed By: Anita Reese RDCS, RVT
== END | disposition home or self-care (01) ==
LOC: CVS 13:45
PROVIDERS: PCP Internal Medicine; Referring Provider Internal Medicine Cardiovascular Disease; Visit Provider Internal Medicine Cardiovascular Disease
DX: G47.30 Sleep apnea, unspecified (principal); I10 Essential (primary) hypertension; I25.10 Atherosclerotic heart disease of native coronary artery without angina pectoris; R06.02 Shortness of breath
CPT/HCPCS: 93306

== ENCOUNTER → 2023-09-18 | Outpatient (CLI) | payer MEDICARE, OTHER, SELFPAY ==
--- NOTE | 2023-09-18 12:58 | STEWCON_ITS ---
Reason For Study: CHEST PAIN, HTN Stress Results Protocol: Sam Protocol WITH DEFINITY Maximum Predicted HR: 151 bpm Target HR: 128 bpm % Maximum Predicted HR: 85 % DurationHeart Rate Stage (mm:ss) (bpm) BP Comment BASELINE 69 138/842 CC DEFINITY STAGE 1 3:00 100 132/84 STAGE 2 3:00 114 144/54BREATHING A LITTLE HARDER STAGE 3 2:00 129 / INCREASED SOB, FATIGUE, 2 CC DEFINITY RECOVERY 89 138/88 Stress Duration: 8:00 mm:ss Maximum Stress HR: 129 bpm Baseline Echocardiogram Findings Stress Echo Wall motion Data Resting WM Intermediate WM Stress WM Resting Wall Motion Wall Motion Stress No regional wall motion Mild anterior and anteroseptal abnormalities noted. hypokinesis poststress. Ejection Fraction 65 %. EKG Data The baseline ECG displays normal sinus rhythm. No ischemic stress ECG changes. Doppler Measurements & Calculations TR max katerina: 237.7 cm/sec TR max P.6 mmHg ECHO/Stress Test Echo W/Contrast Interpretation Summary No ischemic stress ECG changes. Suspect mild anterior and anteroseptal hypokinesis poststress, suggestive of is chemia. Ordering Physician: Ana M Claudio Referring Physician: Ana M Claudio Performed By: Albin Macias [facility]
== END | disposition home or self-care (01) ==
LOC: CVS 12:57
PROVIDERS: PCP Internal Medicine; Referring Provider Internal Medicine Cardiovascular Disease; Visit Provider Internal Medicine Cardiovascular Disease
DX: I25.10 Atherosclerotic heart disease of native coronary artery without angina pectoris (principal); I10 Essential (primary) hypertension; G47.30 Sleep apnea, unspecified; R06.02 Shortness of breath
CPT/HCPCS: 93017; 93350; Q9957; A4216; C8928

== ENCOUNTER → 2023-10-02 | Outpatient (CLI) | payer MEDICARE, OTHER, SELFPAY ==
--- NOTE | 2023-10-02 12:10 | RAD_ITS ---
STUDY: X-RAY CHEST REASON FOR EXAM: Female, 68 years old. SOB -- for heart cath TECHNIQUE: Frontal and lateral views of the chest. COMPARISON: September 18, 2022 FINDINGS: Bilateral calcified granulomas. The lungs are clear and expanded. There is no demonstrated pleural abnormality. Normal size heart. Normal mediastinum and be. Normal visualized pulmonary arteries. Normal visualized aortic arch and descending thoracic aorta. Normal visualized thoracic spine. Normal visualized ribs, clavicles, and shoulders. There is no demonstrated abnormality of the visualized soft tissue structures of the upper abdomen. RAD/Chest PA and Lateral IMPRESSION: No acute disease Electronically Signed: Bijan Cuellar MD at 0:08 EST ,
[2023-10-02 12:20] LABS: Absolute Lymphocyte Count 1.91 X10^3/uL (0.83-4.51); Absolute Neutrophil Count 3.5 X10^3/uL (2.0-7.7); Basophil# 0.06 X10^3/uL; Eosinophil# 0.15 X10^3/uL; Eosinophils% 2.5 % (0-5); Hematocrit 35.3 % (37-47); Hemoglobin 11.3 g/dL (12.0-15.0); Lymphocyte # 1.91 X10^3/ul (0.83-4.51); Lymphocyte % 31.3 % (19-41); Mean Corpuscular Volume 96.7 fL (81-99); Mean Platelet Vol. 9.6 fl (6.2-12.0); Monocyte# 0.46 X10^3/uL; Monocyte% 7.5 % (0-10); NRBC Flagged by Analyzer 0 % (0-5); Neutrophil # 3.49 X10^3/uL (2.7-7.7); Neutrophil % 57.2 % (47-70); Platelet Count 240 K/mm3 (150-450); RBC Distribution Width CV 12.7 % (11.6-14.6); RBC Distribution Width SD 45.3 fl (35.1-43.9); Red Blood Count 3.65 M/mm3 (4.2-5.4); White Blood Count 6.1 K/mm3 (4.4-11.0)
[2023-10-02 12:55] LABS: Anion Gap 4 (5-15); BUN 22 mg/dL (7-18); BUN/Creat Ratio 22.2 RATIO (10-20); Calcium,Total 9.2 mg/dL (8.5-10.1); Chloride 105 mmol/L (98-107); Creatinine, Serum 0.99 mg/dL (0.55-1.02); EST Glomerular Filtration Rate 59 mL/min (>60); Est Glom Filt Rate - Afr Amer 71 mL/min (>60); Glucose 103 mg/dL (74-106); Potassium 3.8 mmol/L (3.5-5.1); Sodium Level 140 mmol/L (136-145)
== END | disposition home or self-care (01) ==
PROVIDERS: PCP Internal Medicine; Visit Provider Internal Medicine Cardiovascular Disease
DX: I25.119 Atherosclerotic heart disease of native coronary artery with unspecified angina pectoris (principal); I10 Essential (primary) hypertension; G47.30 Sleep apnea, unspecified; R06.02 Shortness of breath; R06.09 Other forms of dyspnea; R94.39 Abnormal result of other cardiovascular function study; R53.83 Other fatigue
CPT/HCPCS: 36415; 71046; 80048; 85025

== ENCOUNTER 2023-10-07 11:46 | Observation (INO) | payer MEDICARE, OTHER, SELFPAY ==
[2023-10-06 07:19] VITALS: BMI 37.4
[2023-10-07] VITALS (10 sets, daily range): BP systolic 113–151; BP diastolic 74–89; PULSE 56–66; RESP 16; TEMP 36.2–36.7; O2SAT 96–100
--- NOTE | 2023-10-07 10:05 | CL.D_ITS ---
Patient Name: CALEB QUIROZ Study Date: 10/07/2023 Performing: Ana M Claudio MD Ht: 65 inches 165.1 cm : 1955 Wt: 225.3 lbs 102.06 kg Age: 68 Gender: female BSA: 2.08 PROCEDURE(S) PERFORMED [id number]-([id number])[facility] CLINICAL PROFILE AND INDICATIONS Indications: Stable Known CAD Heart Failure: None CAD Presentations: Symptom unlikely to be ischemic. CONCLUSIONS 50% Mid LAD (iFR 0.94) Ostial D1 65% (iFR 0.97) Mild intramyocardial bridging mid LAD 30% Prox RCA RECOMMENDATIONS Medical therapy Risk factor modification DESCRIPTION OF PROCEDURE The patient arrived to the procedure lab. The risks and benefits of the procedure as well as a full description of our services here and current unavailability of surgical backup were fully explained to the patient and/or their significant other prior to the catheterization. The Timeout was completed, verifying the correct patient and procedure. The patient's procedural site was prepped and draped in the usual fashion. . Using a modified Seldinger technique, . CORONARY ANGIOGRAPHY DOMINANCE: Right Dominant LEFT MAIN: Angiographically normal LEFT ANTERIOR DESCENDING ARTERY: LAD: Tubular 50% Mid lesion in LAD Tubular 50% Mid lesion in LAD DIAGONAL 1: Eccentric 65% Ostial lesion in 1st Diagonal CIRCUMFLEX ARTERY: Angiographically normal RIGHT CORONARY ARTERY: RCA: Tubular 30% Proximal lesion in RCA COMPLICATIONS PROCEDURE MEDICATIONS SUMMARY OF HEMODYNAMIC DATA Time AIR REST ECG 08:41:31 Signed By Ana M Claudio MD On 10/07/2023 10:07:44 Signed By Ana M Claudio MD On 10/07/2023 10:05:20 Ana M Claudio MD
--- NOTE | 2023-10-07 12:14 | CL.I_ITS ---
Patient Name: CALEB QUIROZ Study Date: 10/07/2023 Performing: Ana M Claudio MD Ht: 65 inches 165.1 cm : 1955 Wt: 225 lbs 102.06 kg Age: 68 Gender: female BSA: 2.08 PROCEDURE(S) PERFORMED DC02-(64253)LHC/COR IC12-(73289/C9600)ADY W/WO PTCA, SINGLE CORONARY ARTERY CLINICAL PROFILE AND CO-MORBIDITIES Indications: Stable Known CAD Heart Failure: None Stress/Imaging Stress Echocardiogram: Yes Result: Positive Intermediate Risk Stress Echocardiogram: Positive Intermediate Risk CAD Presentations: Symptom unlikely to be ischemic. CONCLUSIONS Non-obstructive calcific disease LAD RECOMMENDATIONS ASA Indefinitley Plavix for at least 12 months DESCRIPTION OF PROCEDURE The patient arrived to the procedure lab. The risks and benefits of the procedure as well as a full description of our services here and lack of surgical backup were fully explained to the patient and/or their significant other prior to the catheterization. The Timeout was completed, verifying the correct patient and procedure. The patient's procedural site was prepped and draped in the usual fashion. Local anesthetic was given subcutaneously to right radial region with Lidocaine 2%. Using a modified Seldinger technique, arterial access was obtained via the right radial artery, a 6Fr sheath was inserted.. Left Coronary Artery selective angiography was performed in multiple views using a 5 Fr. 4.0 Ermine catheter. Right Coronary Artery selective angiography was then performed in multiple views using a 5 Fr. 4.0 Ermine catheterThe images were reviewed and options discussed. A decision was then made to proceed with an Intervention, IVUS or other adjunct procedure. XB 3.0 Guide catheter was inserted and engaged into the LCA. RUNTHROUGH Guide wire was advanced to the Circumflex. Angiogram performed pre stent deployment. 3.0X15 MITCH FRONTIER Drug Eluting stent was inserted. Drug Eluting stent was advanced across the lesion in the circumflex, PROX. Angiogram performed post stent deployment. 2.5X12 MITCH FRONTIER Drug Eluting stent was inserted. Drug Eluting stent was advanced across the lesion in the circumflex, proximal. 3.0X12 NC EUPHORA Balloon catheter was inserted post stent. Angiogram performed post balloon dilatation. The arterial sheath was pulled and a TR Band was applied for hemostasis-16 CC AIR CORONARY ANGIOGRAPHY DOMINANCE: Right Dominant LEFT MAIN: Angiographically normal LEFT ANTERIOR DESCENDING ARTERY: LAD: Luminal Irregularities 30% Mid lesion in LAD Calcified 30% Proximal lesion in LAD CIRCUMFLEX ARTERY: CIRCUMFLEX: Tubular 80% Proximal lesion in Circumflex Tubular 80% Mid lesion in Circumflex RIGHT CORONARY ARTERY: RCA: Tubular 20% Mid lesion in RCA INTERVENTION INFORMATION LESION SITE: Circumflex (Proximal) Lesion Complexity: High/C, lesion length: 25 mm Pre Stenosis: 80 % Pre intervention FREIDA flow: 3 PROCEDURE: Drug Eluting Stent with post dilatation Post Stenosis: 0 % Post intervention FREIDA flow: 3 Lesion Devices: Cordis 6 Fr XB3.0 100cm Guide Catheter Terumo .014 180cm Runthrough Extra Floppy straight Medtronic 3.0 x 15 MITCH FRONTIER ADY Medtronic 2.50 x 12 MITCH FRONTIER ADY Medtronic NC EUPHORA RX 3.0x12 BALLOON COMPLICATIONS No Complications PROCEDURE MEDICATIONS Versed 1 mg IV Fentanyl 50 mcg IV Versed 2 mg IV Fentanyl 50 mcg IV Oxygen: 2 L/min via nasal cannula Brilinta 180 mg PO @ 10/07/2023 10:52:07 Heparin given IA 10/07/2023 10:40:03 Heparin 6000 unit(s) IV 10/07/2023 10:46:59 Heparin 2000 unit(s) IV 10/07/2023 11:01:15 Heparin 3000 unit(s) IV 10/07/2023 11:31:41 Nitro 200 mcg IC 10/07/2023 11:17:00 Verapamil 2.5mg, Ntg 200mcgs, 2000 units of Heparin given IA 10/07/2023 10:40:03 IV Bolus: .9 NaCl 350 ml total 10/07/2023 11:30:48 SUMMARY OF HEMODYNAMIC DATA Time AIR REST ECG 08:41:31 AO 155/89 (117) SA 10:44:04 Signed By Ana M Claudio MD On 10/07/2023 12:13:49 Ana M Claudio MD
[2023-10-07] MEDS: 0.9% Normal Saline (1000mL) 1,000 ML 150 ML IV (12:23)
--- NOTE | 2023-10-07 12:31 | DCINST_ITS ---
Discharge Instructions Diet Discharge Diet: Low fat / Low cholesterol Activity Discharge Activity: Return to Normal Activity May resume sexual activity in: No Restrictions Dressing / Incision Call your doctor if your incision/area has: Continuous Slow Oozing, Sudden Increased Bleeding, Increased Pain/ Swelling, Increased Redness, Foul Smelling Discharge and Swelling at the incision site Call your doctor if you observe: Fever of 101 or Higher, Coldness, Increased Pain, Numbness or Tingling and Change in Color Follow Up Care Please Follow Up With: Ana M Claudio MD When: 2-4 weeks Test Results: Test results from this visit will be discussed in further detail at your follow- up appointment, if applicable. Discharge Plan Admission Admit Date/Time: 10/07/23 11:46 Attending Provider: Ana M Claudio Primary Care Provider: Mary Louis Discharge Orders/Prescriptions Prescriptions: New Brilinta 90 mg Tablet 90 mg PO BID Qty: 60 6RF Continued multivitamin [Daily Multi-Vitamin] Tablet 1 tab PO DAILY magnesium 250 mg tablet 500 mg PO DAILY Rx Instructions: 500mg orally daily; aspirin [Micaela Low Dose Aspirin] 81 mg tablet,delayed release (DR/EC) 81 mg PO DAILY cholecalciferol (vitamin D3) 50 mcg (2,000 unit) capsule 50 mcg PO DAILY vitamin E (dl, acetate) 90 mg (200 unit) capsule 90 mg PO DAILY nitroglycerin 0.4 mg tablet, sublingual 0.4 mg sublingual Q5M PRN (Reason: chest pain) Qty: 25 3RF Rx Instructions: do not exceed 3 doses per episode cyclobenzaprine 10 mg tablet 10 mg PO HS PRN (Reason: muscle spasm) Patient Comments: TAKE 1 TABLET BY MOUTH AT BEDTIME NEEDED meloxicam 15 mg tablet 15 mg PO DAILY fluoxetine 40 mg capsule 40 mg PO QAM metoprolol tartrate 50 mg tablet 25 mg PO BID Qty: 90 3RF isosorbide mononitrate 30 mg tablet extended release 24 hr 30 mg PO DAILY Qty: 90 3RF benzonatate 100 mg capsule 100 mg PO TID PRN (Reason: cough) Qty: 30 1RF Repatha SureClick 140 mg/mL pen injector 140 mg subcut Q2W Qty: 2 6RF Referrals / Follow Up: Mary Louis MD [Primary Care Provider] - Disposition Disposition (needs filled in before D/C Order can be placed): Home, Self Care
--- NOTE | 2023-10-07 13:35 | CASEMGMT ---
FABIAN WATSON NOTE: FABIAN WATSON to room. Introduced self and role. Pt resting in bed. Brilinta 30-day free trial card provided and instructed on use. Pt made aware if refills are not affordable to discuss other possible more affordable options w/figure model. Questions answered. Pt voices understanding and declines having other discharge planning needs or concerns. Javon JONES RN CM
--- NOTE | 2023-10-07 13:48 | CRPHASE1_ITS ---
Patient Communication Patient Information PHII Cardiac Rehab Discussed with Patient:: Yes Guide to Cardiac Rehab Given to Patient:: Yes Cardiac Rehab Facility Choice List Given to Patient:: Yes Communication to Cardiac Rehab Choice Program [facility] CR PHII:: Communication Given to CR Orchard Manager:: Ana M Claudio Sessions:: 36 sessions - 3 days/wk, 12 weeks Cardiac Rehabilitation Info Program Information Cardiac Rehabilitation Program Information: Cardiac Rehab The cardiac rehab team at [facility] consists of highly skilled exercise physiologists, nurses, respiratory therapists and physicians working together with you. Our purpose is to help you have a full recovery and achieve the goals you set for yourself. Over the years many of our patients have returned to activities they assumed they would never do again! We can help restore your confidence and motivation to make lifestyle changes that can have a significant impact on your health and quality of life! We can help answer questions and concerns you may have about exercise, lifestyle, medications, diet, stress and anxiety which are common following a hospitalization. WE monitor ECG and vital signs during exercise and discuss your progress with you and report to your physician(s). Cardiac Rehab is proven to help reduce readmissions, improve functional capacity and lower recurrence of problems with your heart. Our Cardiac Rehab program is Certified by the [place] [employer]-V[employer] and Pulmonary [employer] (AACVPR) and Accredited by the [place] [employer] through our [facility]. You can contact us at . We invite you to call us with your questions or to get started in our program. If you have other questions or concerns be sure to ask your physician/provider during your follow-up visit. WE look forward to seeing you!
--- NOTE | 2023-10-07 13:49 | CRPH1.INSTRU ---
General Education Discussed with Patient CAD and cardiac anatomy and function:: Patient communicates acknowledgment Explanation of diagnoses and procedures:: Patient communicates acknowledgment Sign/Symptoms of [place]:: Patient communicates acknowledgment Antiplatelet therapy: Patient communicates acknowledgment Proper use of NTG-SL: Patient communicates acknowledgment Emergency procedures and activation of EMS: Patient communicates acknowledgment Compliance of all prescribed medications: Patient communicates acknowledgment Smoking Risk Factors Patient Nicotine/Smoking Risk Factors Are:: Non-smoker Recommendations Recommendations Include:: Previous smoker; encourage continued cessation Response Code Nicotine/Smoking Response Code:: Patient communicates acknowledgment Dyslipidemia Risk Factors Patient Dyslipidemia Risk Factors Are:: Total Cholesterol, Triglycerides, HDL and LDL Recommendations Recommendations Include:: Lipid profile provided, Reviewed NCEP/ATP guidelines and Therapeutic Lifestyle Change dietary guidelines Response Code Dyslipidemia Response Code:: Patient communicates acknowledgment Overweight/Obesity Risk Factors Patient Overweight/Obesity Risk Factors Are:: Obesity - > or = 30 Recommendations Recommendations Include:: Weight loss of 5-10%, Reduced calorie diet and Exercise 5-7 times/week Hypertension Recommendations Recommendations Include:: Maintain BP <130/85, DASH dietary guidelines, Decrease/maintain normal body weight and Moderation of ETOH Response Code Hypertension:: Patient communicates acknowledgment Diabetes Risk Factors Patient Diabetes Risk Factors Are:: No documented hx of diabetes Metabolic Syndrome Risk Factors Patient Metabolic Syndrome Risk Factors Are [3 of 5]:: Waist circumference > 35 [female] or 40 [male], High triglyceride >150, Hypertension and Low HDL <40 [male] or < 50 [female] Recommendations Recommendations Include:: Reinforce compliance to risk factor modifications and Encouraged follow-up with Primary Care Physician Response Code Metabolic Syndrome Response Code:: Patient communicates acknowledgment Sedentary Risk Factors Patient Sedentary Risk Factors Are:: Lack of regular exercise Recommendations Recommendations Include:: Aerobic exercise 5-7 times/week for 20-30 minutes continuously, Benefits of regular exercise, Discussed home walking program and Monitored Outpatient Cardiac Rehab Response Code Sedentary Response Code:: Patient communicates acknowledgment Stress Recommendations Recommendations Include:: Identification of stressors, and assessment of coping skills and Stress management techniques Response Code Stress Response Code:: Patient communicates acknowledgment
[2023-10-07] MEDS: Acetaminophen 325 MG Tablet 650 MG PO (14:01)
[2023-10-07 19:32] LABS: ACT Activated Clotting Time 251 sec (74-137)
[2023-10-07 19:33] LABS: ACT Activated Clotting Time 227 sec (74-137)
[2023-10-07] MEDS: Metoprolol Tartrate 25 MG Tablet PO (21:30)
[2023-10-07] MEDS: TICAGRELOR 90 MG TABLET PO (21:30)
[2023-10-08 03:30] VITALS: BP 131/61; PULSE 63; RESP 16; TEMP 36.1; O2SAT 98
[2023-10-08 07:30] LABS: Hematocrit 35.3 % (37-47); Hemoglobin 11.6 g/dL (12.0-15.0); Mean Corp Hgb Conc 32.9 g/dL (32-36); Mean Corpuscular Hgb 31.3 pg (27.0-32.0); Mean Corpuscular Volume 95.1 fL (81-99); Mean Platelet Vol. 9.2 fl (6.2-12.0); Platelet Count 205 K/mm3 (150-450); RBC Distribution Width CV 12.7 % (11.6-14.6); RBC Distribution Width SD 44.2 fl (35.1-43.9); Red Blood Count 3.71 M/mm3 (4.2-5.4); White Blood Count 3.9 K/mm3 (4.4-11.0)
[2023-10-08 07:36] VITALS: O2SAT 99
[2023-10-08 07:53] LABS: ALB/GLOB Ratio 1.1 RATIO (0.9-2.4); AST(SGOT) 25 U/L (15-37); Alanine Aminotransfer ALT/SGPT 30 U/L (13-56); Albumin, Serum 3.5 g/dL (3.2-5.0); Alkaline Phosphatase 56 U/L (45-117); Anion Gap 4 (5-15); BUN 14 mg/dL (7-18); Calcium,Total 9.1 mg/dL (8.5-10.1); Chloride 106 mmol/L (98-107); EST Glomerular Filtration Rate 58 mL/min (>60); Est Glom Filt Rate - Afr Amer 71 mL/min (>60); Estimated Creatinine Clearance 47.78 ml/min; Globulin 3.3 g/dL (2.2-4.2); Glucose 106 mg/dL (74-106); Protein, Total 6.8 g/dL (6.4-8.2); Sodium Level 138 mmol/L (136-145)
[2023-10-08 08:33] VITALS: BP 146/85; PULSE 67; RESP 16; TEMP 36.8; O2SAT 100
[2023-10-08] MEDS: Aspirin E.C. 81 MG Tablet PO (08:36)
[2023-10-08] MEDS: TICAGRELOR 90 MG TABLET PO (08:36)
[2023-10-08] MEDS: Vitamin E 400 UNITS Capsule PO (08:36)
[2023-10-08] MEDS: Isosorbide Mononitrate 30 MG Tablet PO (08:36)
[2023-10-08] MEDS: Multivitamins,Therapeutic Tablet 1 TABLET PO (08:36)
[2023-10-08 08:37] VITALS: BP 146/85; PULSE 67
[2023-10-08] MEDS: Metoprolol Tartrate 25 MG Tablet PO (08:37)
[2023-10-08] MEDS: Fluoxetine HCl 40 MG CAPSULE PO (08:37)
[2023-10-08] MEDS: Magnesium Chloride 64 MG Delay Rel.Tablet 128 MG PO (08:37)
[2023-10-08] MEDS: Meloxicam 15 MG Tablet PO (08:37)
[2023-10-08] MEDS: Cholecalciferol (VIT D3) 25 MCG TABLET (1,000 UNITS) 50 MCG PO (08:37)
--- NOTE | 2023-10-08 10:50 | CASEMGMT ---
Patient has order for discharge. Patient discharging on Brilinta. FABIAN WATSON called [facility] to verify cost, copay is $236.68. Patient was given Brilinta savings card. FABIAN WATSON in to discuss needs at discharge and update regarding medication cost. Patient denies needs at discharge. Patient had no further questions or concerns at this time.
[2023-10-08 11:15] VITALS: BP 119/80; PULSE 64; RESP 16; O2SAT 99
--- NOTE | 2023-10-30 12:04 | CASEMGMT ---
FABIAN WATSON NOTE: Pt called FABIAN WATSON re: Brilinta. Pt was in [facility] [place] in September, had 2 stents placed, discharged 10/08/23, and sent home /-day Brilinta savings card. She states she will be running out of Brilinta on 11/06. She states she had a cardiology appt 11/13 but it has been changed to November. FABIAN WATSON advised pt to contact cardiology office to let them know of above, as they can either send in for refills on the the Brilinta, or if that is not affordable, they may be able to change to more affordable option. She voices understanding and appreciation for the info. Call placed to Shannon @ [facility] and she was made aware of above and that pt will be calling them re: above. Javon JONES RN, CM
== END 2023-10-08 10:00 | disposition home or self-care (01) ==
LOC: PCU 11:49
PROVIDERS: Admitting Provider Internal Medicine Cardiovascular Disease; PCP Internal Medicine; Referring Provider Internal Medicine Cardiovascular Disease; Visit Provider Internal Medicine Cardiovascular Disease
DX: I25.10 Atherosclerotic heart disease of native coronary artery without angina pectoris (principal); R07.89 Other chest pain; R06.02 Shortness of breath; Z79.82 Long term (current) use of aspirin; Z79.899 Other long term (current) drug therapy; J45.909 Unspecified asthma, uncomplicated; E78.00 Pure hypercholesterolemia, unspecified; I10 Essential (primary) hypertension; Z87.891 Personal history of nicotine dependence; K21.9 Gastro-esophageal reflux disease without esophagitis; E66.9 Obesity, unspecified; G47.33 Obstructive sleep apnea (adult) (pediatric); Z68.37 Body mass index [BMI] 37.0-37.9, adult
CPT/HCPCS: 80053; 85027; 85347; 92928; 93005; 93454; 96360; 96361; 99152; 99153; 99221; C1894; J7030; J7040; Q9967; C1725; C1769; C1874; C1887; C9600; G0378

== ENCOUNTER → 2023-11-20 | Outpatient (CLI) | payer MEDICARE, OTHER, SELFPAY ==
[2023-11-20 11:58] LABS: AST(SGOT) 28 U/L (15-37); Alanine Aminotransfer ALT/SGPT 33 U/L (13-56); Albumin, Serum 3.8 g/dL (3.2-5.0); Alkaline Phosphatase 63 U/L (45-117); Bilirubin, Direct 0.16 mg/dL (0.00-0.30); Cholesterol 140 mg/dL (200); Globulin 3.4 g/dL (2.2-4.2); High Density Lipoprotein 50 mg/dL; Protein, Total 7.2 g/dL (6.4-8.2); Triglycerides 179 mg/dL; Very Low Density Lipoprotein 36 mg/dL (5-40)
== END | disposition home or self-care (01) ==
LOC: LAB 10:15
PROVIDERS: PCP Internal Medicine; Visit Provider Physician Assistant Medical
DX: E78.00 Pure hypercholesterolemia, unspecified (principal)
CPT/HCPCS: 36415; 80061; 80076

== ENCOUNTER → 2024-02-11 | Outpatient (CLI) | payer MEDICARE, OTHER, SELFPAY ==
[2024-02-11 10:13] LABS: Cholesterol 123 mg/dL (200); High Density Lipoprotein 48 mg/dL; Triglycerides 170 mg/dL; Very Low Density Lipoprotein 34 mg/dL (5-40)
[2024-02-11 10:17] LABS: AST(SGOT) 23 U/L (15-37); Alanine Aminotransfer ALT/SGPT 29 U/L (13-56); Albumin, Serum 3.8 g/dL (3.2-5.0); Alkaline Phosphatase 70 U/L (45-117); Bilirubin, Direct 0.18 mg/dL (0.00-0.30); Globulin 3.3 g/dL (2.2-4.2); Protein, Total 7.1 g/dL (6.4-8.2)
== END | disposition home or self-care (01) ==
PROVIDERS: Nurse Practitioner Gerontology; PCP Internal Medicine; Referring Provider Physician Assistant Medical; Visit Provider Physician Assistant Medical
DX: E78.5 Hyperlipidemia, unspecified (principal)
CPT/HCPCS: 36415; 80061; 80076

== ENCOUNTER → 2024-03-16 | Outpatient (CLI) | payer MEDICARE, OTHER, SELFPAY ==
[2024-03-16 11:18] LABS: Absolute Lymphocyte Count 1.58 X10^3/uL (0.83-4.51); Absolute Neutrophil Count 3.3 X10^3/uL (2.0-7.7); Basophil# 0.06 X10^3/uL; Basophil% 1.1 % (0-1); Eosinophils% 1.8 % (0-5); Hematocrit 36.6 % (37-47); Lymphocyte # 1.58 X10^3/ul (0.83-4.51); Lymphocyte % 28.4 % (19-41); Mean Corp Hgb Conc 32.8 g/dL (32-36); Mean Corpuscular Hgb 30.5 pg (27.0-32.0); Mean Corpuscular Volume 92.9 fL (81-99); Mean Platelet Vol. 9.7 fl (6.2-12.0); Monocyte# 0.53 X10^3/uL; Monocyte% 9.5 % (0-10); NRBC Flagged by Analyzer 0 % (0-5); Neutrophil # 3.28 X10^3/uL (2.7-7.7); Platelet Count 256 K/mm3 (150-450); RBC Distribution Width CV 13.2 % (11.6-14.6); RBC Distribution Width SD 44.7 fl (35.1-43.9); Red Blood Count 3.94 M/mm3 (4.2-5.4); White Blood Count 5.6 K/mm3 (4.4-11.0)
== END | disposition home or self-care (01) ==
LOC: LAB 10:28
PROVIDERS: PCP Internal Medicine; Referring Provider Physician Assistant Medical; Visit Provider Physician Assistant Medical
DX: R23.3 Spontaneous ecchymoses (principal)
CPT/HCPCS: 36415; 85025

== ENCOUNTER → 2024-07-23 | Outpatient (CLI) | payer MEDICARE, OTHER, SELFPAY ==
--- NOTE | 2024-07-23 15:05 | RAD_ITS ---
STUDY: X-RAY - LUMBAR SPINE REASON FOR EXAM: Female, 69 years old. low back pain, radiculopathy TECHNIQUE: XR Spine Lumbar 2 Views COMPARISON: None FINDINGS: Normal lumbar lordosis. There is no substantial scoliosis. There is a normal alignment of the vertebrae. There is multilevel endplate spondylosis of the lumbar vertebrae. There is multi-level degenerative disc disease with multi-level disc space narrowing. The soft tissue structures are unremarkable. RAD/Lumbar Spine 2 or 3 Views IMPRESSION: Degenerative changes of the spine, as detailed above. Electronically Signed: Harrison Ibanez MD at 18:45 EDT ,
== END | disposition home or self-care (01) ==
LOC: RAD 14:59
PROVIDERS: PCP Internal Medicine; Referring Provider Internal Medicine; Visit Provider Internal Medicine
DX: M54.16 Radiculopathy, lumbar region (principal)
CPT/HCPCS: 72100

== ENCOUNTER → 2024-09-30 | Outpatient (CLI) | payer MEDICARE, OTHER, SELFPAY ==
--- NOTE | 2024-09-30 15:41 | MRI_ITS ---
HISTORY: pain. TECHNIQUE: Multiplanar and multisequence MR images of the thoracic spine were obtained without intravenous contrast. 190 images. COMPARISON: Chest radiograph 10/02/2023 FINDINGS: VERTEBRAE: Vertebral body heights maintained. Mild degenerative endplate changes. Scattered vertebral body hemangiomas incidentally noted, largest at T10. ALIGNMENT: No significant anterior or posterior subluxation. No scoliosis. SPINAL CORD: Thoracic cord in signal and morphology. Normal morphology and position of the conus medullaris at T12-L1. INTERVERTEBRAL DISCS: C7-T1: Small right perineural cyst. T1-T2, T2-3, T3-4, T4-5, T5-6, T6-7, T7-8: No significant posterior disc protrusion, central canal stenosis, or foraminal narrowing. T8-9: Very mild disc bulge with facet arthropathy. No significant central canal stenosis or foraminal narrowing. T9-10: No significant posterior disc protrusion, central canal stenosis, or foraminal narrowing. T10-11: Mild disc bulge with facet arthropathy resulting in mild right greater left foraminal narrowing. No significant central canal stenosis. T11-12: Mild disc bulge with facet arthropathy resulting in mild central canal stenosis and bilateral foraminal narrowing. T12-L1: No significant posterior disc protrusion, central canal stenosis, or foraminal narrowing. SOFT TISSUES: No paraspinal fluid collection. Small left renal cysts. MRI/Spine Thoracic (Routine) IMPRESSION: Mild mild degenerative change of the thoracic spine as above. Electronically Signed: Homa You MD at 14:31 EST ,
== END | disposition home or self-care (01) ==
LOC: MRI 15:32
PROVIDERS: PCP Internal Medicine; Referring Provider Orthopaedic Surgery Orthopaedic Surgery of the Spine; Visit Provider Orthopaedic Surgery Orthopaedic Surgery of the Spine
DX: M43.16 Spondylolisthesis, lumbar region (principal)
CPT/HCPCS: 72146

== ENCOUNTER → 2024-10-07 | Outpatient (CLI) | payer MEDICARE, OTHER, SELFPAY ==
--- NOTE | 2024-10-07 06:39 | MRI_ITS ---
STUDY: MRI LUMBAR SPINE WITHOUT CONTRAST REASON FOR EXAM: Female, 69 years old. pain TECHNIQUE: Standardized fat and water weighted pulse sequences were obtained in the sagittal and axial planes. COMPARISON: X-ray 08/27/2024 FINDINGS: T12-L1: Normal endplates. Normal disc height, hydration and morphology. Normal bilateral facet joints. Normal central canal and bilateral lateral recesses. Normal bilateral intervertebral neural foramina. Normal lumbar lordosis. There is no substantial scoliosis. Normal conus medullaris that terminates at the L1. L1-2: Normal endplates. Normal disc height, hydration and morphology. Normal bilateral facet joints. Normal central canal and bilateral lateral recesses. Normal bilateral intervertebral neural foramina. L2-3: Mild bilateral facet hypertrophy with fluid in the facet joints consistent with instability and severe ligament and flavum hypertrophy. 2 mm retrolisthesis of L2 on L3 with a mild bilobed disc protrusion produces moderate spinal stenosis and moderate bilateral neural foraminal stenosis. L3-4: Mild bilateral facet hypertrophy and moderate ligament flavum hypertrophy. Mild bilobed disc protrusion produces mild spinal stenosis and mild bilateral neural foraminal stenosis. L4-5: Severe bilateral facet hypertrophy and ligament flavum hypertrophy. Moderate broad disc protrusion produces severe spinal stenosis with moderate bilateral lateral recess stenosis and moderate bilateral neural foraminal stenosis. L5-S1: Normal endplates. Normal disc height, hydration and morphology. Normal bilateral facet joints. Normal central canal and bilateral lateral recesses. Normal bilateral intervertebral neural foramina. Normal visualized sacral ala. Normal visualized paraspinous soft tissue structures. MRI/Spine Lumbar (Routine) IMPRESSION: Multilevel degenerative changes, as described above. Electronically Signed: Kevin Carrington MD at 13:35 EST ,
== END | disposition home or self-care (01) ==
LOC: MRI 06:32
PROVIDERS: PCP Internal Medicine; Referring Provider Orthopaedic Surgery Orthopaedic Surgery of the Spine; Visit Provider Orthopaedic Surgery Orthopaedic Surgery of the Spine
DX: M43.16 Spondylolisthesis, lumbar region (principal)
CPT/HCPCS: 72148

== ENCOUNTER → 2024-11-18 | Outpatient (CLI) | payer MEDICARE, OTHER, SELFPAY ==
--- NOTE | 2024-11-18 08:38 | BD_ITS ---
EXAM: XR DEXA BONE DENSITY AXIAL CLINICAL INDICATION: pain TECHNIQUE: Dual energy x-ray absorptiometry performed. Bone mineral density measurements were obtained of the lumbar spine and (optionally) the proximal femurs. Values are compared with gender matched average of normal, and with age, weight and ethnic origin (Z-score) and with healthy young adults (T-score). COMPARISON: No relevant prior studies available. FINDINGS: LUMBAR SPINE BONE MINERAL DENSITY: The bone mineralization density was obtained of the lumbar spine from L1 to L4. The average bone mineralization density is 1.100 g/sq cm which gave a T score of 0.5. LUMBAR SPINE T-SCORE: See above. RIGHT TOTAL FEMUR BONE MINERAL DENSITY: The total bone mineralization density of the right femoral neck is 1.142 g/sq cm which gave a T score of 1.6. LEFT TOTAL FEMUR BONE MINERAL DENSITY: Total bone density in the left femoral neck is 1.088 g/sq cm which gave a T score of 1.2. UNITS OF MEASURE: Bone mineral density is measured in g/cm2. Z-score is the number of standard deviations above age-matched controls. T-score is the number of standard deviations above healthy young adults. WORLD HEALTH ORGANIZATION GUIDELINES: T-score at or above -1 is normal bone mineral density. T-score between -1 and -2.5 is osteopenia. T-score at or below -2.5 is osteoporosis. BD/Dexa Bone Density Study IMPRESSION: No acute findings. Bone mineralization density within normal limits. Electronically Signed: Nabeel Abebe MD at 22:59 EST ,
== END | disposition home or self-care (01) ==
LOC: OPBD 08:37
PROVIDERS: PCP Internal Medicine; Referring Provider Orthopaedic Surgery Orthopaedic Surgery of the Spine; Visit Provider Orthopaedic Surgery Orthopaedic Surgery of the Spine
DX: M81.0 Age-related osteoporosis without current pathological fracture (principal)
CPT/HCPCS: 77080

== ENCOUNTER 2024-12-07 10:42 | Inpatient (IN) | payer MEDICARE, OTHER, SELFPAY ==
--- NOTE | 2024-12-01 09:27 | PAT.ANESEVAL ---
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 When Was Last Pacemaker Check QUESTION #4 FULL TEXT: You/Your Family Experience fever (hyperthermia) with Anesthesia Last Oral Intake Last Oral intake: Last Oral Intake NPO since Meds taken in AM with sips of water? 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 finisher foreman Female Yes 11/23/24 13:16 HX of Motion Sickness Yes 11/23/24 13:16 HX of N/V After Surgery No 11/23/24 13:16 Non-Smoker Yes 11/23/24 13:16 Duration of Surgery greater Yes 11/23/24 13:16 than 60 minutes Number of Risk Factors 4 11/23/24 13:16 PONV Score Severe Risk 11/23/24 13:16 Height & Weight Height & Weight: Anesthesia: Height & Weight Height 5 ft 5 in 09/27/24 14:37 Respiratory Assessment Respiratory Assessment - drywall finisher foreman: Respiratory Tract Infection Hx - drywall finisher foreman Hx Respiratory Tract Infection No 11/23/24 13:16 STOP Sleep Apnea STOP Sleep Apnea - drywall finisher foreman: STOP Sleep Apnea - drywall finisher foreman Hx Hypertension Yes: CONTROLLED WITH MED 11/23/24 13:16 Hx Sleep Apnea Yes 11/23/24 13:16 CPAP Yes 11/23/24 13:16 BIPAP No 11/23/24 13:16 Do you snore loudly (louder than talking or can be heard Do you often feel tired/ fatigued/ sleepy during daytime? Has anyone observed you stop breathing during sleep? STOP Results Positive 11/23/24 13:16 QUESTION #5 FULL TEXT : Do you snore loudly (louder than talking or can be heard through closed doors)? 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 finisher foreman Tobacco Use Smoking Status Former smoker 11/23/24 13:16 Hx Tobacco Use No 11/23/24 13:16 Years Smoking Packs Smoked per Day Smoking Cessation Date was No - quit smoking greater 11/23/24 13:16 within the last 15 years than 15 years ago Hx Smoking Cessation Date 11/17/97 11/23/24 13:16 Hx Smoking Cessation No 11/23/24 13:16 Counseling Hematologic Medial History Hematologic Hx - drywall finisher foreman: Hematologic Medical Hx - nurse sitter Hx of Blood Transfusion No 11/23/24 13:16 Hx of Transfusion in last 3 No 11/23/24 13:16 Months Date of Last Transfusion (if within last 3 months) Ever experience any problems No 11/23/24 13:16 with transfusion(s)? Specify any problems Hx of Preganancy in last 3 No 11/23/24 13:16 Months Nurse Filling Out Transfusion DSCHRIBER 11/23/24 13:16 & Questions: Date: 11/23/24 11/23/24 13:16 Time: 13:18 11/23/24 13:16 Patient unable to answer at this time (ie. confused, unrespo /Reproduction History /Reproductive History - drywall finisher foreman: /Reproductive Hx- drywall finisher foreman Hx Now No 11/23/24 13:16 Gestational Age (in weeks): EDC: Hx Hx Para Hx Section SAB No 11/23/24 13:16 PFSH Medical History Post-menopausal Depression Low iron Syncope Dietary restriction History of ulceration Asthma History of pain when walking History of edema Heart murmur Low back pain Obesity Angina pectoris Acute URI History of anemia Wears glasses Cancer Anxiety Arthritis High cholesterol History of whiplash injury Former smoker CPAP (continuous positive airway pressure) dependence Shortness of breath on exertion History of echocardiogram History of stress test Cardiology follow-up encounter Hypertension History of rheumatic fever History of rectal fissure Rectal bleeding Atherosclerotic heart disease of [place] coronary artery without angina pectoris Weight gain with edema Numbness of fingers Dizziness Edema Cough Coronary artery disease SOB (shortness of breath) Dyslipidemia Dyspnea on exertion Abnormal stress test Essential hypertension Fatigue COVID-19 Contact with and (suspected) exposure to other viral communicable diseases Chronic low back pain with bilateral sciatica Stress due to family tension Muscle spasm Chronic right shoulder pain Essential hypertension Heart murmur, systolic Obstructive sleep apnea of adult GERD (gastroesophageal reflux disease) Depression Sleep apnea Anemia Skin cancer Chronic bronchitis Murmur, cardiac Depressive disorder, not elsewhere classified Home Medications ?Medication ?Instructions ?Recorded ?Last Taken ?Type multivitamin (Daily Multi-Vitamin 1 tab PO DAILY SUPPLEMENT 06/22/20 Unknown History tablet) magnesium 250 mg tablet 500 mg PO DAILY SUPPLEMENT 08/19/22 Unknown History cholecalciferol (vitamin D3) 50 50 mcg PO DAILY SUPLEMENT 09/10/22 Unknown History mcg (2,000 unit) capsule vitamin E (dl, acetate) 90 mg (200 90 mg PO DAILY SUPPLEMENT 09/10/22 Unknown History unit) capsule nitroglycerin 0.4 mg sublingual 0.4 mg sublingual Q5M PRN chest 02/03/23 Unknown Rx tablet pain #25 tabs fluoxetine 40 mg capsule 40 mg PO QAM DEPRESSON #90 caps 04/14/24 Unknown Rx evolocumab 140 mg/mL subcutaneous 140 mg subcut Q2W CHOLESTEROL #2 mL 08/30/24 Unknown Rx pen injector (Marla Mota) cyclobenzaprine 10 mg tablet 10 mg PO HS PRN muscle spasm #90 10/18/24 Unknown Rx tabs meloxicam 15 mg tablet 15 mg PO DAILY PAIN #90 tabs 10/21/24 Unknown Rx phentermine 30 mg capsule 30 mg PO QDAY WEIGHT LOSS #30 caps 10/29/24 Unknown Rx metoprolol tartrate 50 mg tablet 25 mg (1/2 x 50 mg) PO BID BP #90 11/08/24 Unknown Rx tabs aspirin 81 mg capsule 81 mg PO DAILY HEART HEALTH 11/23/24 Unknown History rivaroxaban 2.5 mg tablet (Xarelto) 2.5 mg PO BID BLOOD THINNER 11/23/24 Unknown History Allergy/AdvReac Type Severity Reaction Status Date / Time prednisone Allergy Severe kidney Verified 11/30/24 10:28 failure,weakness [id number] Reductase AdvReac Severe myalgias Verified 11/30/24 10:28 Inhibitor amlodipine AdvReac Intermediate Swelling Verified 11/30/24 10:28 in feet, numbness in fingers atorvastatin AdvReac Intermediate Other Verified 11/30/24 10:28 Family History Mother Breast cancer Heart disease Hypertension Diabetes Myocardial infarction Aunt Breast cancer Father Anxiety Alcoholism Brother Anxiety Alcoholism Cystic fibrosis Grandfather Anxiety Alcoholism Sister Cystic fibrosis Surgical History Hx of tubal ligation History of cystoscopy Hx of tonsillectomy Hx of colonoscopy Stented coronary artery History of left heart catheterization (~10/07/23) Previous back surgery H/O knee surgery Social History household members: spouse housing: house current occupational status: retired Smoking Status: Former smoker alcohol intake: current alcohol intake frequency: a few times a week Alcohol type: wine substance use type: does not use caffeine: Yes Type: coffee Number of servings: 2 Audit: Pertinent Findings Pertinent Findings Stress test pertinent findings: 09/18/2023 no ischemia on stress EKG mild anterior anterior septal hypokinesis post-rest suggestive of ischemia Echo (EF%) pertinent findings: 09/08/2023 EF 65% mild aortic stenosis Heart catheterization pertinent findings: 10/07/2023 proximal circumflex lesion procedure of drug-eluting stent Consult pertinent findings: Cardiology for 01/06/2024 stented coronary artery circumflex stable continue with isosorbide hypertension chronic stable Pulmonary function results/spirometer pertinent findings: Chest x-ray 10/02/2023 no acute disease Recommendation Anesthesia Recommendation Anesthesia recommendation: OPTIMIZED for anesthesia
[2024-12-07] VITALS (16 sets, daily range): BP systolic 94–137; BP diastolic 49–72; PULSE 67–83; RESP 16–20; TEMP 36.3–36.8; O2SAT 95–100; BMI 37.6
[2024-12-07] MEDS: 0.9% Normal Saline (1000mL) 1,000 ML 15 ML IV (06:23)
[2024-12-07] MEDS: Magnesium 1 GM over 15 mins IV (06:24)
[2024-12-07] MEDS: Acetaminophen 500 MG Tablet 1000 MG PO ×3 (06:24→21:48)
--- NOTE | 2024-12-07 06:43 | PRE.ANES_ITS ---
ASA Classification* ASA Classification ASA Classification: 3 Assessment & Plan Anesthesia* Anesthesia Assessment Anesthesia Assessment: Discussed sedation and/or anesthesia options, risks, benefits, and alternatives with patient/parents/legal guardian/POA. Questions invited. The patient/parents/legal guardian/POA seems to understand and agrees to proceed with anesthesia plan. Reviewed the physical assessment, medical history, allergy history and patient home medications list prior to surgery/procedure/anesthetic and documented any changes. Performed airway and anesthesia risk assessments. Anesthesia Type Anesthesia Type: General History Source History Obtained from:: Patient and Chart Anesthesia Focused Assessment* Temperature: 97.5 F Pulse Rate: 73 Blood Pressure: 117/51 Respiratory Rate: 16 Pulse Ox: 98 Oxygen Delivery Method: Room Air Airway Assessment Mouth opens: >3 cm Mallampati Score: IV Teeth Condition: Caps/Crowns (Patient has multiple crowns. They are all tight.) Neck Range of motion (ROM): Limited ROM (Slight decrease in extension) Focused Labs Anesthesia Preop lab: CBC WBC 5.6 K/mm3 (4.4-11.0) 03/16/24 10:30 RBC 3.94 M/mm3 (4.2-5.4) L 03/16/24 10:30 Hgb 12.0 g/dL (12.0-15.0) 03/16/24 10:30 Hct 36.6 % (37-47) L 03/16/24 10:30 Plt Count 256 K/mm3 (150-450) 03/16/24 10:30 CHEMISTRY Potassium 4.0 mmol/L (3.5-5.1) 10/08/23 07:10 Sodium 138 mmol/L (136-145) 10/08/23 07:10 BUN 14 mg/dL (7-18) 10/08/23 07:10 Creatinine 1.00 mg/dL (0.55-1.02) 10/08/23 07:10 Glucose 106 mg/dL (74-106) 10/08/23 07:10 TSH 3.68 uIU/mL (0.358-3.74) 08/29/23 08:22 COAG PT 13.0 SECONDS (11.7-14.9) 09/18/22 08:59 Pre-Assessment Diagnosis/Proposed Procedure Planned Operative Procedure(s): 360 LUMBAR FUSION L4-5 Anesthesia History 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 When Was Last Pacemaker Check QUESTION #4 FULL TEXT: You/Your Family Experience fever (hyperthermia) with Anesthesia Last Oral Intake Last Oral intake: Last Oral Intake NPO since 04:15 12/07/24 06:11 Meds taken in AM with sips of No 12/07/24 06:11 water? 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 Female Yes 11/23/24 13:16 HX of Motion Sickness Yes 11/23/24 13:16 HX of N/V After Surgery No 11/23/24 13:16 Non-Smoker Yes 11/23/24 13:16 Duration of Surgery greater Yes 11/23/24 13:16 than 60 minutes Number of Risk Factors 4 11/23/24 13:16 PONV Score Severe Risk 11/23/24 13:16 Height & Weight Height & Weight: Anesthesia: Height & Weight Height 5 ft 5 in 12/07/24 06:11 Weight: 102.693 kg 12/07/24 06:11 Body Mass Index (BMI) 37.6 12/07/24 06:11 Respiratory Assessment Respiratory Assessment - 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 Has anyone observed you stop breathing during sleep? STOP Results Positive 11/23/24 13:16 QUESTION #5 FULL TEXT : Do you snore loudly (louder than talking or can be heard through closed doors)? 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 Specify any problems Hx of Preganancy in last 3 No 11/23/24 13:16 Months Nurse Filling Out Transfusion DSCHRIBER 11/23/24 13:16 & Questions: Date: 11/23/24 11/23/24 13:16 Time: 13:18 11/23/24 13:16 Patient unable to answer at this time (ie. 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: /Reproductive Hx- shrimping boat captain Hx Now No 11/23/24 13:16 Gestational Age (in weeks): EDC: Hx Hx Para Hx Section SAB No 11/23/24 13:16 Active Medications Active Medications: Current Medications Generic Name Dose Route Start Last Admin Trade Name Freq PRN Reason Stop Dose Admin Acetaminophen 1,000 mg 12/07/24 07:30 12/07/24 06:24 Acetaminophen 500 Mg Tablet PO 12/07/24 07:31 1,000 mg X1 ONE Administration Cefazolin Sodium 2 gm/ N/A 20 mls @ 400 mls/hr 12/07/24 07:30 IV 12/07/24 07:32 PREOP ONE Tranexamic Acid 1,000 mg/ 110 mls @ 440 mls/hr 12/07/24 07:30 Sodium Chloride IV 12/07/24 07:44 X1 ONE Tranexamic Acid 1,000 mg/ 110 mls @ 440 mls/hr 12/07/24 07:30 Sodium Chloride IV 12/07/24 07:44 X1 ONE Magnesium Sulfate 1 gm/ 102 mls @ 408 mls/hr 12/07/24 07:30 12/07/24 06:24 Dextrose IV 12/07/24 07:44 408 mls/hr X1 ONE Administration Sodium Chloride 1,000 mls @ 15 mls/hr 12/07/24 06:25 12/07/24 06:23 IV 12/12/24 19:44 15 mls/hr .Q48H MARK Administration Protocol Insulin Human Lispro 1 - 6 unit 12/07/24 07:30 Insulin Lispro 100 Unit/Ml Insuln.Pen SC Q4H PRN PRN BG>/= 180, SEE PROTOCOL Protocol PFSH Medical History Post-menopausal Depression Low iron Syncope Dietary restriction History of ulceration Asthma History of pain when walking History of edema Heart murmur Low back pain Obesity Angina pectoris Acute URI History of anemia Wears glasses Cancer Anxiety Arthritis High cholesterol History of whiplash injury Former smoker CPAP (continuous positive airway pressure) dependence Shortness of breath on exertion History of echocardiogram History of stress test Cardiology follow-up encounter Hypertension History of rheumatic fever History of rectal fissure Rectal bleeding Atherosclerotic heart disease of [place] coronary artery without angina pectoris Weight gain with edema Numbness of fingers Dizziness Edema Cough Coronary artery disease SOB (shortness of breath) Dyslipidemia Dyspnea on exertion Abnormal stress test Essential hypertension Fatigue COVID-19 Contact with and (suspected) exposure to other viral communicable diseases Chronic low back pain with bilateral sciatica Stress due to family tension Muscle spasm Chronic right shoulder pain Essential hypertension Heart murmur, systolic Obstructive sleep apnea of adult GERD (gastroesophageal reflux disease) Depression Sleep apnea Anemia Skin cancer Chronic bronchitis Murmur, cardiac Depressive disorder, not elsewhere classified Home Medications ?Medication ?Instructions ?Recorded ?Last Taken ?Type multivitamin (Daily Multi-Vitamin 1 tab PO DAILY SUPPLEMENT 06/22/20 12/06/24 History tablet) magnesium 250 mg tablet 500 mg PO DAILY SUPPLEMENT 08/19/22 12/06/24 History cholecalciferol (vitamin D3) 50 50 mcg PO DAILY SUPLEMENT 09/10/22 12/06/24 History mcg (2,000 unit) capsule vitamin E (dl, acetate) 90 mg (200 90 mg PO DAILY SUPPLEMENT 09/10/22 12/06/24 History unit) capsule nitroglycerin 0.4 mg sublingual 0.4 mg sublingual Q5M PRN chest 02/03/23 Unknown Rx tablet pain #25 tabs fluoxetine 40 mg capsule 40 mg PO QAM DEPRESSON #90 caps 04/14/24 12/06/24 Rx evolocumab 140 mg/mL subcutaneous 140 mg subcut Q2W CHOLESTEROL #2 mL 08/30/24 12/03/24 Rx pen injector (Marla Mota) cyclobenzaprine 10 mg tablet 10 mg PO HS PRN muscle spasm #90 10/18/24 12/06/24 Rx tabs meloxicam 15 mg tablet 15 mg PO DAILY PAIN #90 tabs 10/21/24 12/03/24 Rx phentermine 30 mg capsule 30 mg PO QDAY WEIGHT LOSS #30 caps 10/29/24 11/30/24 Rx metoprolol tartrate 50 mg tablet 25 mg (1/2 x 50 mg) PO BID BP #90 11/08/24 12/06/24 Rx tabs aspirin 81 mg capsule 81 mg PO DAILY HEART HEALTH 11/23/24 12/03/24 History rivaroxaban 2.5 mg tablet (Xarelto) 2.5 mg PO BID BLOOD THINNER 11/23/24 12/05/24 History Allergy/AdvReac Type Severity Reaction Status Date / Time prednisone Allergy Severe kidney Verified 12/07/24 06:03 failure,weakness [id number] Reductase AdvReac Severe myalgias Verified 12/07/24 06:03 Inhibitor amlodipine AdvReac Intermediate Swelling Verified 12/07/24 06:03 in feet, numbness in fingers atorvastatin AdvReac Intermediate Other Verified 12/07/24 06:03 Family History Mother Breast cancer Heart disease Hypertension Diabetes Myocardial infarction Aunt Breast cancer Father Anxiety Alcoholism Brother Anxiety Alcoholism Cystic fibrosis Grandfather Anxiety Alcoholism Sister Cystic fibrosis Surgical History Hx of tubal ligation History of cystoscopy Hx of tonsillectomy Hx of colonoscopy Stented coronary artery History of left heart catheterization (~10/07/23) Previous back surgery H/O knee surgery Social History household members: spouse housing: house current occupational status: retired Smoking Status: Former smoker alcohol intake: current alcohol intake frequency: a few times a week Alcohol type: wine substance use type: does not use caffeine: Yes Type: coffee Number of servings: 2 Review of Systems (Anesthesia) ROS Narrative System reviewed and no additional complaints, except as documented.
--- NOTE | 2024-12-07 07:10 | PCM.HP.BLA ---
History and Physical Date of Admission: 12/07/24 MR#: [id number] Acct: [id number] Name: CALEB QUIROZ Rep #: [id number] : 1955 Provider: Dr. Robert Melvin MD Age/Sex: 69/F Location[place] [facility] [place] Status: Signed Intake Vital Signs 09/27/2414:37 Height 5 ft 5 in Intake Visit Reasons: lumbar spine Accompanied by: Self Allergies prednisone Allergy (Severe, Verified 11/30/24 10:28) kidney failure,fedcdsmoHzxumth-LEJ-LzO Reductase Inhibitor Adverse Reaction (Severe, Verified 11/30/24 10:28) myalgiasamlodipine Adverse Reaction (Intermediate, Verified 11/30/24 10:28) Swelling in feet, numbness in fingersatorvastatin Adverse Reaction (Intermediate, Verified 11/30/24 10:28) Other Medications ?Medication ?Instructions ?Recorded ?Confirmed ?Type multivitamin (Daily Multi-Vitamin 1 tab PO DAILY SUPPLEMENT 06/22/20 11/30/24 History tablet) magnesium 250 mg tablet 500 mg PO DAILY SUPPLEMENT 08/19/22 11/30/24 History cholecalciferol (vitamin D3) 50 50 mcg PO DAILY SUPLEMENT 09/10/22 11/30/24 History mcg (2,000 unit) capsule vitamin E (dl, acetate) 90 mg (200 90 mg PO DAILY SUPPLEMENT 09/10/22 11/30/24 History unit) capsule nitroglycerin 0.4 mg sublingual 0.4 mg sublingual Q5M PRN chest 02/03/23 11/30/24 Rx tablet pain #25 tabs fluoxetine 40 mg capsule 40 mg PO QAM DEPRESSON #90 caps 04/14/24 11/30/24 Rx evolocumab 140 mg/mL subcutaneous 140 mg subcut Q2W CHOLESTEROL #2 mL 08/30/24 11/30/24 Rx pen injector (Marla Mota) cyclobenzaprine 10 mg tablet 10 mg PO HS PRN muscle spasm #90 10/18/24 11/30/24 Rx tabs meloxicam 15 mg tablet 15 mg PO DAILY PAIN #90 tabs 10/21/24 11/30/24 Rx phentermine 30 mg capsule 30 mg PO QDAY WEIGHT LOSS #30 caps 10/29/24 11/30/24 Rx metoprolol tartrate 50 mg tablet 25 mg (1/2 x 50 mg) PO BID BP #90 11/08/24 11/30/24 Rx tabs aspirin 81 mg capsule 81 mg PO DAILY HEART HEALTH 11/23/24 11/30/24 History rivaroxaban 2.5 mg tablet (Xarelto) 2.5 mg PO BID BLOOD THINNER 11/23/24 11/30/24 History Have you fallen in the past year?: No PFSH Medical History Post-menopausal Depression Low iron Syncope Dietary restriction History of ulceration Asthma History of pain when walking History of edema Heart murmur Low back pain Obesity Angina pectoris Acute URI History of anemia Wears glasses Cancer Anxiety Arthritis High cholesterol History of whiplash injury Former smoker CPAP (continuous positive airway pressure) dependence Shortness of breath on exertion History of echocardiogram History of stress test Cardiology follow-up encounter Hypertension History of rheumatic fever History of rectal fissure Rectal bleeding Atherosclerotic heart disease of [place] coronary artery without angina pectoris Weight gain with edema Numbness of fingers Dizziness Edema Cough Coronary artery disease SOB (shortness of breath) Dyslipidemia Dyspnea on exertion Abnormal stress test Essential hypertension Fatigue COVID-19 Contact with and (suspected) exposure to other viral communicable diseases Chronic low back pain with bilateral sciatica Stress due to family tension Muscle spasm Chronic right shoulder pain Essential hypertension Heart murmur, systolic Obstructive sleep apnea of adult GERD (gastroesophageal reflux disease) Depression Sleep apnea Anemia Skin cancer Chronic bronchitis Murmur, cardiac Depressive disorder, not elsewhere classified Surgical History Hx of tubal ligation History of cystoscopy Hx of tonsillectomy Hx of colonoscopy Stented coronary artery History of left heart catheterization (~10/07/23) Previous back surgery H/O knee surgery Family History Mother Breast cancer Heart disease Hypertension Diabetes Myocardial infarctionAunt Breast cancerFather Anxiety AlcoholismBrother Anxiety Alcoholism Cystic fibrosisGrandfather Anxiety AlcoholismSister Cystic fibrosis Social History household members: spouse housing: house current occupational status: retired Smoking Status: Former smoker alcohol intake: current alcohol intake frequency: a few times a week Alcohol type: wine substance use type: does not use caffeine: Yes Type: coffee Number of servings: 2 HPI lumbar spine Details: This documentation accurately reflects the service provided and the decisions made by me, Dr. Robert Melvin MD 11/30/24 1024. Part of today?s visit was documented by Allie STUART, acting as scribe. CALEB QUIROZ is a 69 year old F here today for preop, lumbar spine, dos 12/07/24. HPI from 10/13/24: CALEB QUIROZ is a 69 year old F here today for a MRI review. Patient states her pain is the same as before her MRI. She continues to have difficulty with endurance and is unable to stand or walk for long period of time. She is unable to do things that she loves in the yard because of the pain and weakness in the legs. Patient says that she just started Xarelto due to being short of breath and we need clearance from cardiology. She was not taking Xarelto when PAT called. HPI from 08/27/24: CALEB QUIROZ is a 69 year old F here today NEW patient for low back pain. She states that she has had a previous surgery 30 years ago. She states that it takes her awhile to recover from any surgery and it took her 2 years before she could work in her flower beds. She has seen a chiropractor. Dr Louis gives her cyclobenzaprine and Meloxicam because she is unable to get her muscles relaxed. He has also given her a Medrol dose ema with tramadol which did help calm down her pain. She has had the pain she is having now for 5+ years that comes and goes. Her pain occasionally radiates down the left leg along with numbness and tingling on the medial portion of her right lower leg. She has never had any injections before. She has done PT in the past and the last time she did it was 3 years ago, she also just finished heart therapy where they did cardio rehab. PT did seem to give her some relief in the past. She had stents placed in her heart 2 years ago and takes Prasugrel. Ortho Exam General General: Yes no acute distress Neurologic: Yes alert and Yes oriented x3 Spine SPINE TESTING CERVICAL THORACIC LUMBAR Musculoskeletal Strength 0=absent - 5=normal Details: Neurological exam of the lower extremities shows 5x5 power. Normal sensations across all dermatomes. No hyperreflexia. No midline or paraspinal tenderness. Coding Level of Care Code Off vis,est,level 4 Diagnoses Spinal stenosis of lumbar region with neurogenic claudication M48.062 Spondylolisthesis, lumbar region M43.16 Time Spent (min) 35 Assessment and Plan Assessment and Plan (1) Spinal stenosis of lumbar region with neurogenic claudication: Status: Acute (2) Spondylolisthesis, lumbar region: Status: Acute Plan MRI shows L4-5 severe spinal stenosis with moderate bilateral lateral recess stenosis and moderate bilateral neural foraminal stenosis. Again reviewed prior xrays which shows an L4 on L5 spondylolisthesis with dynamic instability, and low bone density. Recommend a L4-5 anterior posterior lumbar fusion with indirect decompression. Reviewed the benefits and risks of surgery. Risks of surgery include bleeding, infection, visceral injury, ileus, hardware failure, pseudoarthrosis, adjacent segment degeneration, pneumonia, DVT, pulmonary embolism, atelectasis, gait abnormality, persistent pain, stretch injuries, chance for future surgeries. Patient understands and agrees to proceed with surgery. Explained in detail the procedure of the lumbar fusion. Discussed post surgery restrictions such as no bending, lifting, or twisting. Answered all questions that she had today in preparation for next week. Consent was signed. Patient is in agreement.
--- NOTE | 2024-12-07 07:15 | RAD_ITS ---
PROCEDURE: L4-L5 fusion. DATE OF EXAMINATION: December 10, 2024. INDICATION: Female, 69 years old. Low back pain. FLUOROSCOPY TIME (if supplied): (52 seconds) minutes/seconds. 47.92 mGy. 15 spot images were submitted. RAD/Lumbar Spine 2 or 3 Views IMPRESSION: Intraoperative fluoroscopic services provided for fusion at the L4-L5 level. Electronically Signed: Jaspal Mcrae MD at 12:22 EST ,
[2024-12-07 07:16] LABS: Bedside Glucose 111 mg/dL (74-106)
[2024-12-07] MEDS: Cefazolin 2 GM in Syringe 10 ML IV ×3 (07:45→23:52)
[2024-12-07] MEDS: TRANEXAMIC ACID 1,000 MG in 0.9% Normal Saline (100mL Bag) 100 ML 440 MG IV ×2 (08:00→10:14)
[2024-12-07] MEDS: Ropivacaine 0.5% 30 ML Vial (10:28)
--- NOTE | 2024-12-07 10:40 | OP.PCM_ITS ---
Procedures Musculoskeletal 20xxx-29xxx: Other Procedure See Report Operative Report (Standard) Operative Information Date of Procedure: 12/07/24 Pre-Operative Diagnosis: L4-5 spondylolisthesis, stenosis with neurogenic claudication Post-Operative Diagnosis: Same Surgery/Procedure Performed: L4-5 oblique lumbar interbody fusion housekeeping staff: Yes Senior Corporate Strategy Manager: Sushma Hampton Tasks completed by environmental services assistant: Closing, Hemostasis: Electrocautery and Retracting Type of Anesthesia: General RN Documented Start/Stop Times: Operation Date: 12/07/24 07:30 Case Time Into Pre-Op 12/07/24 05:40 Out of Pre-Op 12/07/24 07:25 Anesthesia Start 12/07/24 07:30 Into Room 12/07/24 07:30 Procedure Start 12/07/24 08:06 Procedure End 12/07/24 10:35 Procedure Start Time: 08:06 Procedure Stop Time: 10:35 Select all DRAINS/GRAFTS/IMPLANTS that apply: Graft Graft details: Allograft cancellous bone chips, autologous bone marrow aspirate and Implanted device Implanted device details: DePuy cougar lateral lumbar interbody cage?peek Estimated Blood Loss: 50 cc Specimen collected: No Description of surgery: Preoperative diagnosis: L4-5 spondylolisthesis, stenosis with neurogenic claudication Postoperative diagnosis: Same Name of procedures L4-5 oblique lumbar interbody fusion (OLIF), minimally invasive left sided approach, lateral decubitus: ? L4-5 anterolateral spinal fusion ? L4-5 insertion of cage 73779 ? Bone graft aspirate left iliac crest separate incision ? Allograft cancellous chips Attending Surgeon: Dr. Robert Melvin Estimated blood loss: 50 mL Anesthesia: General Complications: None Indications: Patient is a 69-year-old pleasant lady who has had a long history of low back pain and left worse than right lower extremity radiation, difficulty walking distances. Xrays & MRI revealed L4-5 spondylolisthesis with stenosis. After undergoing a prolonged period of nonoperative treatment, the patient elected to undergo surgical decompression & fusion. All surgical options were discussed with the patient including anterior and posterior approaches. All risks and benefits associated with the procedure were explained to the patient. The risks include but are not limited to infection, bleeding, injury to nerves and vessels including major vessels like IVC and aorta, persistent paresthesia, persistent pain, dural tear, need for further procedures, adjacent segment degeneration, pseudoarthrosis, hardware failure, retrograde ejaculation, paralytic ileus, etc. Procedure: The patient was identified in the preoperative holding suite using Unique patient identifiers. Skin was marked, consent was reviewed, and all questions were answered. The patient was then brought back to the operative room. A surgical timeout was performed to make sure correct procedure was being done on the correct patient and all operative room staff were on the same page. General endotracheal anesthesia was then given to the patient. Brooks catheter was inserted. The patient was then carefully positioned in right lateral decubitus position with the left side up on a regular OR table. Axillary roll was placed and all bony prominences were well- padded. Hip positioners were placed in the posterior buttocks and anterior sternal area. The surgical area was prepped and draped in usual fashion. Preoperative antibiotic was injected IV as preoperative antibiotic. A final timeout was then again done just before starting the procedure. A 2 inch incision oblique was taken in the left lower quadrant of the abdomen 2 fingerbreadths away from the iliac crest and the lower ribs. Sharp dissection with Bovie was carried out up to the fascia covering the external oblique. The external oblique, internal oblique and transversus abdominis muscles were split along the muscle fibers and retroperitoneal space was entered. Sponge sticks were utilized to move the bowel and peritoneum [id number]-rd-jdf-way and psoas muscle was exposed staying within the retroperitoneal plane. Amaruframe retractor system was positioned and the retractor blade was applied onto the psoas. The interval between psoas and midline structures was developed and appropriate retractors were placed. Once adequate interval was cleared, a disc space was identified and a marker x-ray was taken. This identified the L4-5 disc level. The prepsoas interval was then traced inferiorly. Annulotomy was done with a long handled knife. Pituitary was used to remove disc material. Curettes were used to prepare the endplates. Disc space spreaders were utilized to distract and increase the disc height. Near complete discectomy was performed. Smaller disc distractors were also used to bluntly perform a contralateral annulotomy. Trials of serially increasing sizes were used. A Jamshidi needle was used to aspirate bone marrow from the left anterior iliac crest through a separate incision and this aspirate was mixed with the allograft bone chips. A Depuy [place] cage of size of the 18 x 50 x 16 mm with 15 degrees lordosis was packed with corticocancellous allograft bone chips mixed with bone marrow aspirate. This was inserted into the L4-5 disc space. AP and lateral C-arm pictures were taken to confirm good position of the cage. Some bone chips were also packed around the cages. Screw with washer was placed into the lower L4 body with a washer partially covering the cage at L4-5. Hemostasis was confirmed. The retractor blades were removed. Closure was done in layers with a continuous strand of # 1 Vicryl in all muscle layers. 2-0 Vicryl was used for subcutaneous tissue and 4-0 for Monocryl for the skin. Steri-Strips were applied and 4 x 4 gauze and Tegaderm were applied. Graphic Arts Instructor Susmha Hampton PA-C. My physician assistant store manager trainee was a vital part of this case. They were important in appropriate retraction during the case, and protection of soft tissues during the procedure. Their intimate knowledge of the case and my steps aided in safe and expedient completion of the procedure as well as appropriate position of the patient during the surgery. They were also vital in assisting with closure under my direct supervision. Surgical Findings: See operative note Complications Complications: No
--- NOTE | 2024-12-07 10:46 | OP.PCM_ITS ---
Procedures Musculoskeletal 20xxx-29xxx: Other Procedure See Report Operative Report (Standard) Operative Information Date of Procedure: 12/07/24 Pre-Operative Diagnosis: L4-5 spondylolisthesis, stenosis with neurogenic claudication Post-Operative Diagnosis: Same Surgery/Procedure Performed: L4-5 posterior spinal instrumented fusion drier and grinder tender: Yes Pillow Filler: Sushma Hampton Tasks completed by wheelchair van operator first responder: Closing, Implanting device, Hemostasis: Electrocautery and Retracting Type of Anesthesia: General RN Documented Start/Stop Times: Operation Date: 12/07/24 07:30 Case Time Into Pre-Op 12/07/24 05:40 Out of Pre-Op 12/07/24 07:25 Anesthesia Start 12/07/24 07:30 Into Room 12/07/24 07:30 Procedure Start 12/07/24 08:06 Procedure End 12/07/24 10:35 Procedure Start Time: 08:06 Procedure Stop Time: 10:35 Select all DRAINS/GRAFTS/IMPLANTS that apply: Graft Graft details: Allograft cancellous bone chips and Implanted device Implanted device details: DePuy Viper prime pedicle screw instrumentation Estimated Blood Loss: 50 cc Specimen collected: No Description of surgery: Preoperative diagnosis: L4-5 spondylolisthesis, stenosis with neurogenic claudication Postoperative diagnosis: Same Name of procedures: L4-5 posterior percutaneous pedicle screw instrumented fusion, prone: ? L4-5 posterior spinal fusion 82091 ? L4-5 posterior pedicle screw instrumentation 42038 ? Allograft cancellous chips 11708 Attending Surgeon: Dr. Robert Melvin Estimated blood loss: 50 mL (total for entire case) Anesthesia: General Complications: None Description of procedure: After the anterior procedure was complete, the patient was then turned supine. The patient was then transferred to Corbin table in prone position. Back was prepped and draped in usual fashion. C-arm AP view was then taken. C-arm was positioned in a way that L4 was centralized and superior endplate of was parallel to the beam. Spinous process was centered between the pedicles. Midline was marked with skin marker and lateral borders of the pedicles were also marked. Skin marker was also utilized to essie transversely across the middle of the pedicles at L4. 2 vertical paramedian incisions of 1 inch were placed. The fascia was incised vertically. Finger dissection was utilized to palpate the transverse process and facet joint. Viper Prime screws with towers were inserted and docked onto the transverse processes. This was then slowly moved medially to reach the superior articular process of L4. This was then confirmed on C-arm and then a mallet was utilized to drive the trocar into the pedicle going up to the medial wall of the pedicle on AP view. This was performed both sides. C-arm lateral view confirmed that the tip of the trocar was in the vertebral body, and the screw was advanced into the pedicle and vertebral body. This was repeated similarly at L5 bilaterally. Screw sizes were 7 x 50 mm at L4 and L5 on both sides. 45 mm precontoured titanium 5.5 mm lordotic andrew on both sides were then passed through the screw extensions and reduced down to the screws with the help of ComplyMDer instrumentation system on both sides. AP and lateral view of the C-arm showed good positioning of the screws and cages. Final tightening with the torque screwdriver was then completed. Mandeep was utilized to roughen the facet joint at L4-5 on the right side. Cancellous allograft bone chips mixed with bone marrow aspirate were then placed over this decorticated area. Hemostasis was achieved. Closure was done in layers with 0 Vicryls for the fascia, 2-0 Vicryls for the subcutaneous tissue, and Monocryl for the skin. Dermabond was applied. Dressings were applied covered with Tegaderm. The patient was then turned supine onto a hospital bed. The patient was extubated and taken to PACU in stable condition. The patient tolerated the procedure well and no complications occurred. Depuy [place] cage & Viper Prime minimally invasive pedicle screw instrumentation system was utilized in this case. No dural tear was identified intraoperatively. I was present for the entirety of the case and performed the surgery. Pantograph Watcher Sushma Hampton PA-C. My physician butcher assistant was a vital part of this case. They were important in appropriate retraction during the case, and protection of soft tissues during the procedure. Their intimate knowledge of the case and my steps aided in safe and expedient completion of the procedure as well as appropriate position of the patient during the surgery. They were also vital in assisting with closure under my direct supervision. Surgical Findings: See operative note Complications Complications: No
--- NOTE | 2024-12-07 10:59 | PCM.POST.ANE ---
Anesthesia: Postop Eval I Current Vital Signs Temperature: 97.8 F Pulse Rate: 71 Blood Pressure: 117/54 Respiratory Rate: 20 Pulse Ox: 96 Assessment Airway patent: Yes Spontaneous unlabored respirations: Yes nausea: No Vomiting: No Anesthesia Complication: No Fluid Hydration Crystalloid volume administer (ml): 2,100 Total IV fluid infused: 2,100 Progress Note Anesthesia document: Postop Eval 1 completed: Yes
[2024-12-07] MEDS: Ketorolac 15 MG/ML Vial IV (12:57)
[2024-12-07] MEDS: Ensure Surgery 237 ML LIQUID PO (13:05)
[2024-12-07] MEDS: oxyCODONE 5 MG Tablet PO (15:13)
[2024-12-07] MEDS: Methocarbamol 500 MG Tablet 1000 MG PO ×3 (15:14→21:49)
--- NOTE | 2024-12-07 19:51 | PN.HOSP_ITS ---
Subjective Subjective 69-year-old female history of CAD, depression, obesity who presented [facility] 12/07/2024 for a lumbar fusion with Dr. Melvin. Hospitalist consulted for postop medical management. Patient evaluated at bedside and is resting comfortably, overall feels well and has no new or acute complaints Objective Data Objective Data Vital Signs: Vital Signs Temp Pulse Resp BP Pulse Ox O2 Del Method O2 Flow Rate 97.5 F L 79 16 112/62 95 Room Air 4 12/07/24 17:30 12/07/24 17:30 12/07/24 17:30 12/07/24 17:30 12/07/24 17:30 12/07/24 17:30 12/07/24 12:47 Oxygen Flow Rate (L/min) 4 Oxygen Delivery Method Room Air Weight: 102.693 kg Body Mass Index (BMI) 37.6 Intake & Output: Intake and Output for Last 24 Hours 12/05/24 12/06/24 12/07/24 23:59 23:59 23:59 Intake Total 2362 / 2362 Output Total 500 / 500 Balance 1862 / 1862 Lab / Micro Data Labs: Laboratory Results - last 24 hr 12/07/24 06:06: POC Glucose 111 H Radiography Diagnostic Testing: Radiology Impression Lumbar Spine X-Ray 12/07/24 07:15 IMPRESSION: Intraoperative fluoroscopic services provided for fusion at the L4-L5 level. Electronically Signed: Jaspal Mcrae MD at 12:22 EST Reading Location ID and State: [address] [place] [address] , Service support , Physical Exam Narrative General: Alert, oriented, no apparent distress HEENT: Atraumatic, normocephalic Eyes: Anicteric, normal conjunctiva, extraocular movements grossly intact Neck: Supple Respiratory: Clear to auscultation bilaterally, normal respiratory effort Cardiovascular: Regular rate and rhythm GI: Soft, nontender, nondistended Extremities: No edema Musculoskeletal: Moving all extremities Neuro: No overt focal neurological deficits Skin: No rashes appreciated Psych: Cooperative Assessment & Plan Assessment/Plan (1) Low back pain: PLAN: Plan # History of coronary artery disease -With previous stent October 07, 2023 to her circumflex -Continue aspirin when cleared to do so by primary team -Continue beta-tano as blood pressure allows -Resume home Xarelto when cleared to do so by primary team #Depression/anxiety -Continue home medications #Lumbar stenosis -s/p posterior lumbar fusion w/ Dr. Melvin 12/07/24 -PT/OT -Management per primary #DVT ppx: Timing at the discretion of primary Kristin Roper MD Time spent in the patient's overall evaluation, decision-making process, review of diagnostic data, adjustment of management, discussion with other providers, nursing and ancillary staff involved in patient's care documentation, 15 Minutes Charges/Coding Visit Charges Office Visits / Consults: [id number] OV L2 Est 10min
--- NOTE | 2024-12-07 20:15 | POSTOPAN2_ITS ---
Anesthesia Postop Eval I Sum Postop Eval Completion status Anesthesia document: Postop Eval 1 completed: Yes Anesthesia Postop Eval I Summary Anesthesia Postop Eval I Summary: Anesthesia Postop Eval I: Assessment Summary Airway patent Yes 12/07/24 11:00 ROUTE DRIVER COIN [email or web address].[email or web address] Spontaneous unlabored Yes 12/07/24 11:00 ROUTE DRIVER COIN [email or web address] respirations Mental status nausea No 12/07/24 11:00 ROUTE DRIVER COIN [email or web address] Vomiting No 12/07/24 11:00 ROUTE DRIVER COIN [email or web address] Anesthesia Postop Eval I: Fluid Summary Crystalloid volume administer 2,100 12/07/24 11:00 ROUTE DRIVER COIN [email or web address] (ml) Colloids volume administered ( ml) Blood Product volume administered (ml) Total IV fluid infused 2,100 12/07/24 11:00 ROUTE DRIVER COIN [email or web address] Anesthesia Postop Eval I: Summary Notes Anesthesia Complication No 12/07/24 11:00 ROUTE DRIVER COIN [email or web address] Anesthesia Complication Comment: Post-operative progress note Anesthesia: Postop Eval II Evaluation Mental status: Awake and Calm Pain Level: 2 nausea: No Vomiting: No Complications Anesthesia Complication: No
--- NOTE | 2024-12-07 20:15 | PCM.POSTANE2 ---
Anesthesia Postop Eval I Sum Postop Eval Completion status Anesthesia document: Postop Eval 1 completed: Yes Anesthesia Postop Eval I Summary Anesthesia Postop Eval I Summary: Anesthesia Postop Eval I: Assessment Summary Airway patent Yes 12/07/24 11:00 [email or web address] [email or web address] Spontaneous unlabored Yes 12/07/24 11:00 [email or web address] respirations Mental status nausea No 12/07/24 11:00 [email or web address] Vomiting No 12/07/24 11:00 [email or web address] [email or web address] Anesthesia Postop Eval I: Fluid Summary Crystalloid volume administer 2,100 12/07/24 11:00 [email or web address] (ml) Colloids volume administered ( ml) Blood Product volume administered (ml) Total IV fluid infused 2,100 12/07/24 11:00 [email or web address] Anesthesia Postop Eval I: Summary Notes Anesthesia Complication No 12/07/24 11:00 [email or web address] Anesthesia Complication Comment: Post-operative progress note Anesthesia: Postop Eval II Evaluation Mental status: Awake and Calm Pain Level: 2 nausea: No Vomiting: No Complications Anesthesia Complication: No
[2024-12-07] MEDS: Metoprolol Tartrate 25 MG Tablet PO (21:48)
[2024-12-07] MEDS: Senna/Docusate Sodium 1 Tablet 2 TABLET PO (21:49)
[2024-12-08] VITALS: BP 91/36; PULSE 67; RESP 16; TEMP 36.4; O2SAT 98
[2024-12-08] MEDS: oxyCODONE 5 MG Tablet PO ×2 (05:30→11:40)
[2024-12-08] MEDS: Acetaminophen 500 MG Tablet 1000 MG PO ×2 (05:31→14:32)
[2024-12-08 05:36] VITALS: BP 130/57; PULSE 66; RESP 16; TEMP 36.4; O2SAT 98
[2024-12-08 06:54] LABS: Hematocrit 34.2 % (37-47); Hemoglobin 11.5 g/dL (12.0-15.0); Mean Corp Hgb Conc 33.6 g/dL (32-36); Mean Corpuscular Hgb 30.7 pg (27.0-32.0); Mean Corpuscular Volume 91.4 fL (81-99); Mean Platelet Vol. 9.7 fl (6.2-12.0); Platelet Count 237 K/mm3 (150-450); RBC Distribution Width CV 12.7 % (11.6-14.6); RBC Distribution Width SD 41.9 fl (35.1-43.9); Red Blood Count 3.74 M/mm3 (4.2-5.4); White Blood Count 15.5 K/mm3 (4.4-11.0)
--- NOTE | 2024-12-08 07:00 | RAD_ITS ---
INDICATION: s/p lumbar fusion -- please do upright AP and LAT EXAMINATION/TECHNIQUE: X-RAY - XR Spine Lumbar 2 or 3 Views COMPARISON: Prior study dated: 08/27/2024 FINDINGS: VERTEBRAE: Preserved vertebral body height. No fracture. Posterior fusion of L4 and L5 with bilateral pedicle screws and disc implants. Anterior surgical screws. Preservation of the normal lumbar lordosis. No substantial scoliosis. DISCS: Mild narrowing of L2-L3 disc space. INCLUDED ABDOMEN: Included bowel gas pattern is non-obstructive. RAD/Lumbar Spine 2 or 3 Views IMPRESSION: Status post fusion of L4-L5 as described above. Electronically Signed: Presley Story MD at 13:32 EST ,
[2024-12-08 07:15] LABS: Anion Gap 7 (5-15); BUN 14 mg/dL (7-18); Calcium,Total 9.6 mg/dL (8.5-10.1); Chloride 103 mmol/L (98-107); Creatinine, Serum 0.88 mg/dL (0.55-1.02); EST Glomerular Filtration Rate 68 mL/min (>60); Est Glom Filt Rate - Afr Amer 82 mL/min (>60); Estimated Creatinine Clearance 70.69 ml/min; Glucose 123 mg/dL (74-106); Potassium 4.7 mmol/L (3.5-5.1); Sodium Level 136 mmol/L (136-145)
[2024-12-08 07:30] VITALS: O2SAT 94
[2024-12-08] MEDS: Ensure Surgery 237 ML LIQUID PO ×2 (08:48→11:39)
[2024-12-08 08:49] VITALS: BP 130/57; PULSE 66
[2024-12-08] MEDS: Fluoxetine HCl 40 MG CAPSULE PO (08:49)
[2024-12-08] MEDS: Meloxicam 15 MG Tablet PO (08:49)
[2024-12-08] MEDS: Metoprolol Tartrate 25 MG Tablet PO (08:49)
[2024-12-08] MEDS: Methocarbamol 500 MG Tablet 1000 MG PO ×2 (08:49→14:32)
[2024-12-08] MEDS: Senna/Docusate Sodium 1 Tablet 2 TABLET PO (08:49)
--- NOTE | 2024-12-08 11:02 | CASEMGMT ---
FABIAN WATSON Assessment Face to Face with patient for initial transition planning/care coordination assessment. FABIAN WATSON introduced self and role at [facility], pt voices understanding. Pt is A&Ox4 and is resting comfortably in bed and is calm. Pt daughter at bedside. Care providers, pharmacy, and demographics verified. Admitting dx: 360 Lumbar Fusion L4-5 LACE Strata: 1 PCP: Mary Louis Specialists: Gomez (Eye), Olegario (Ortho) Preferred Pharmacy: [facility] Insurance: [employer] A/B, MMO, Prescription Benefit: Yes LNOK: Kodi ( - Currently at [facility]), Rey (Son), Julissa Cuellar (Daughter) Living Arrangements: Pt lives alone in a two story home with 1 step to enter ADLs/IADLs: Pt reports that she is ind and that therapy went well today (there is no PT note in at this time) Transportation: Self, daughter. Denies concerns DME: Pt states that she has plenty of DME left over from her including a BSC, Cane, FWW, W/C, Grab bars, Shower chair, and hospital bed. Pt also has a CPAP at home but no additional oxygen. HHC/SNF: Denies personal history or needs Pt?s goal: Return home Plan: Home with the support of pt son and pt daughter. Pt plans to f/u with Dr Melvin in 2 weeks and plans to attend OP Therapy subsequently through [facility]. Pt denies further needs at this time and states that her son and daughter plan to stay with her throughout this week and that the pt sister will be staying with the pt this weekend. Pt states that she has plenty of support and resources available to her and denies further questions or concerns at this time. CM to follow. Deepa Coats RN, CM
[2024-12-08 12:00] VITALS: BP 97/52; PULSE 73; RESP 18; TEMP 36.6; O2SAT 95
--- NOTE | 2024-12-08 13:02 | PCM.PN.ORT ---
Subjective Subjective Postop day 1 L4-5 fusion. Patient is doing well postoperatively with her pain well-managed. She has been up to the bathroom. She has passed flatus and tolerated a solid meal. She has walked with therapy. Objective Data Objective Data Vital Signs: Vital Signs Temp Pulse Resp BP Pulse Ox O2 Del Method O2 Flow Rate 97.8 F 73 18 97/52 L 95 Room Air 4 12/08/24 12:00 12/08/24 12:00 12/08/24 12:00 12/08/24 12:00 12/08/24 12:00 12/08/24 12:00 12/07/24 12:47 Oxygen Flow Rate (L/min) 4 Oxygen Delivery Method Room Air Weight: 226 lb 6.4 oz Body Mass Index (BMI) 37.6 Intake & Output: Intake and Output for Last 24 Hours 12/06/24 12/07/24 12/08/24 23:59 23:59 23:59 Intake Total 2382 / 2632 1898.75 / 1898.75 Output Total 500 / 500 Balance 1882 / 2132 1898.75 / 1898.75 Lab / Micro Data 12/08/24 05:30 12/08/24 05:30 Labs: Laboratory Results - last 24 hr 12/08/24 05:30: WBC 15.5 H, RBC 3.74 L, Hgb 11.5 L, Hct 34.2 L, MCV 91.4, MCH 30.7, MCHC 33.6, RDW Std Deviation 41.9, RDW Coeff of Erwin 12.7, Plt Count 237, MPV 9.7, Sodium 136, Potassium 4.7, Chloride 103, Carbon Dioxide 26.0, Anion Gap 7, BUN 14, Creatinine 0.88, Estim Creat Clear Calc 70.69, Est GFR (MDRD) Af Amer 82, Est GFR (MDRD) Non-Af 68, BUN/Creatinine Ratio 16.0, Glucose 123 H, Calcium 9.6 Physical Exam Narrative Neurological exam of the lower extremities shows 5x5 power. Normal sensations across all dermatomes. Physical exam of the back and belly shows Tegaderm and gauze intact. Gauze over belly incision shows very mild saturation. Const alert, oriented x3 and no apparent distress Assessment & Plan Assessment/Plan (1) Status post lumbar spinal fusion: PLAN: Plan X-rays done today look good. Patient is 1 day postop L4-5 fusion. PT/OT cleared. Plan to return home. Home-going meds include oxycodone, acetaminophen, methocarbamol, meloxicam, senna. Reviewed restrictions of no bending, lifting, twisting. Patient will follow-up in clinic in 2 weeks.
--- NOTE | 2024-12-08 13:49 | PN_ITS ---
Subjective Subjective Patient seen and examined. She had no active complaints. Pain was well controlled. Review of systems is otherwise negative. She has remained hemodynamically stable. Today is POD 1 for lumbar spinal fusion. Objective Data Objective Data Vital Signs: Vital Signs Temp Pulse Resp BP Pulse Ox O2 Del Method O2 Flow Rate 97.8 F 73 18 97/52 L 95 Room Air 4 12/08/24 12:00 12/08/24 12:00 12/08/24 12:00 12/08/24 12:00 12/08/24 12:00 12/08/24 12:00 12/07/24 12:47 Oxygen Flow Rate (L/min) 4 Oxygen Delivery Method Room Air Weight: 226 lb 6.4 oz Body Mass Index (BMI) 37.6 Intake & Output: Intake and Output for Last 24 Hours 12/06/24 12/07/24 12/08/24 23:59 23:59 23:59 Intake Total 2382 / 2632 1898.75 / 1898.75 Output Total 500 / 500 Balance 1882 / 2132 1898.75 / 1898.75 Lab / Micro Data 12/08/24 05:30 12/08/24 05:30 Labs: Laboratory Results - last 24 hr 12/08/24 05:30: WBC 15.5 H, RBC 3.74 L, Hgb 11.5 L, Hct 34.2 L, MCV 91.4, MCH 30.7, MCHC 33.6, RDW Std Deviation 41.9, RDW Coeff of Erwin 12.7, Plt Count 237, MPV 9.7, Sodium 136, Potassium 4.7, Chloride 103, Carbon Dioxide 26.0, Anion Gap 7, BUN 14, Creatinine 0.88, Estim Creat Clear Calc 70.69, Est GFR (MDRD) Af Amer 82, Est GFR (MDRD) Non-Af 68, BUN/Creatinine Ratio 16.0, Glucose 123 H, Calcium 9.6 Radiography Diagnostic Testing: Radiology Impression Lumbar Spine X-Ray 12/08/24 07:00 IMPRESSION: Status post fusion of L4-L5 as described above. Electronically Signed: Presley Story MD at 13:32 EST , Physical Exam Const alert, oriented x3, no apparent distress and well nourished General Appearance: cooperative HEENT normocephalic, head/scalp atraumatic, moist oral mucous membranes and oropharynx normal Eyes PERRL and EOMs intact bilaterally Neck no lymphadenopathy and supple Lymph Lymphatic: no lymphadenopathy noted and no lymphedema noted Resp normal respiratory effort, normal air movement and clear to auscultation bilaterally Cardio regular rate, regular rhythm, S1 normal heart sound, S2 normal heart sound and no murmurs GI normal to inspection, nondistended, normoactive bowel sounds, soft to palpation, non-tender and non-distended Extremity normal capillary refill, no clubbing, cyanosis or edema and no calf tenderness Skin Skin Narrative: intact dressing over lower back. Neuro CN's II-XII intact bilaterally, no focal motor deficits and no sensory deficits noted Motor Exam: strength 5/5 throughout and general weakness Psych thought process normal, cooperative and affect normal Appearance: appropriate Assessment & Plan Assessment/Plan (1) Status post lumbar spinal fusion: (2) Spinal stenosis of lumbar region with neurogenic claudication: PLAN: Plan #History of CAD s/p stents * had stent placed on 10/07/2023 to her circumflex artery. * aspirin on hold; to resume when cleared by primary team. * on beta tano. * #Lumbar spinal stenosis * s/p posterior lumbar interbody fusion on 12/07/2024. * today is POD 1. * PT/OT on board * fall precautions * #Depression and anxiety: on fluoxetine. #Afib: on metoprolol and eliquis. eliquis on hold as she had back surgery. #Hyperlipidemia: on repatha. DVT prophylaxis: as per primary service. on SCDs. Thank you for the courtesy of the consult. Hospitalist service will continue to follow with you. Charges/Coding Visit Charges Inpatient E&M: 31607 Subs Hosp L2
[2024-12-08 14:49] VITALS: BP 97/52; PULSE 73; RESP 18; TEMP 36.6; O2SAT 95
--- NOTE | 2024-12-08 15:52 | CHAPLAIN ---
Type of Pastoral Visit _x__ Initial Visit ___ Follow-up Visit ___ On-call Visit ___ General Patient Visit ___ Spiritual Assessment ___ Family Conference ___ Bereavement ___ Rapid Response ___ Code Blue ___ Other (describe below) Pastoral Care Referral From _x__ Patient ___ Family ___ Nurse ___ Physician ___ Shift Boss ___ Plug Assembler ___ Other (describe below) Sacrament/Intervention _x__ Active listening ___ Anointing ___ Buddhism ___ Bereavement ___ Communion _x__ Sarah exploration ___ _x__ Life review _x__ Prayer ___ Reconciliation ___ Sacrament of Sick ___ Supportive presence ___ Wedding ___ Other (describe below) Pastoral Comments patient will be discharged soon but expresses thankfulness to this supervisor [facility] for coming to see her as she was hoping; pt is expressive of good care and surgery; pt feeling better than she expected; pt gives much life review which includes the physical and emotional care concerns of her in the fci; pt daughter is with her and a son will be coming to give aid; pt is spiritual and talks openly about her sarah and how she is trusting God; pt welcomes presence and prayers for support
== END 2024-12-08 15:36 | disposition home or self-care (01) | DRG 402 ==
PROVIDERS: Student in an Organized Health Care Education/Training Program; Admitting Provider Orthopaedic Surgery Orthopaedic Surgery of the Spine; PCP Internal Medicine; Referring Provider Orthopaedic Surgery Orthopaedic Surgery of the Spine; Visit Provider Orthopaedic Surgery Orthopaedic Surgery of the Spine
PROC: 0SG00A0 Fusion of Lumbar Vertebral Joint with Interbody Fusion Device, Anterior Approach, Anterior Column, Open Approach (ICD-10-PCS; principal; 2024-12-07 07:00)
DX: M48.062 Spinal stenosis, lumbar region with neurogenic claudication (principal); E78.5 Hyperlipidemia, unspecified; J42 Unspecified chronic bronchitis; I10 Essential (primary) hypertension; M43.16 Spondylolisthesis, lumbar region; I25.10 Atherosclerotic heart disease of native coronary artery without angina pectoris; I25.84 Coronary atherosclerosis due to calcified coronary lesion; M85.80 Other specified disorders of bone density and structure, unspecified site; Z87.891 Personal history of nicotine dependence; Z95.5 Presence of coronary angioplasty implant and graft; Z88.8 Allergy status to other drugs, medicaments and biological substances; Z79.82 Long term (current) use of aspirin; Z79.899 Other long term (current) drug therapy; Z79.01 Long term (current) use of anticoagulants
CPT/HCPCS: 36415; 72100; 76000; 80048; 82962; 85027; 94668; 97162; 97166; C1713; J2405; J3475